=== PATIENT | female | born 1935 | race Caucasian/White ===

== ENCOUNTER 2020-10-05 12:40 | Outpatient (REF) | payer MEDICARE, SELFPAY ==
[2020-10-05 13:43] LABS: MANUAL DIFF FLAG NO
[2020-10-05 13:48] LABS: Basophils Percent Auto 0.4 % (0-2); Eosinophils Absolute Auto 0.2 X10*3/uL (0.0-0.4); Eosinophils Percent Auto 3.1 % (0-4); Hematocrit 40.1 % (37-47); Imm Gran Abs Auto 0.02 X10*3/uL (0.00-0.03); Imm Gran Pct Auto 0.3 % (0.0-0.4); Lymphocytes Absolute Auto 1.4 X10*3/uL (1.2-4.9); Lymphocytes Percent Auto 20.3 % (20-40); Mean Corpuscular HGB Conc 32.4 g/dl (31.0-35.0); Mean Corpuscular Hemoglobin 30.7 pg (27.0-33.0); Mean Corpuscular Volume 94.8 fL (80-98); Mean Platelet Volume 10.2 fL (9.4-12.3); Monocytes Absolute Auto 0.8 X10*3/uL (0.1-1.2); Monocytes Percent Auto 11.3 % (2-11); Neutrophils Absolute Auto 4.5 X10*3/uL (2.0-8.3); Neutrophils Percent Auto 64.6 % (45-73); Platelet Count 252 X10*3/uL (160-400); Red Blood Count 4.23 X10*6/uL (4.20-5.50); Red Cell Distribution Width 12.6 % (11.0-16.0)
[2020-10-05 14:11] LABS: Alanine Aminotransferase 7 U/L (0-31); Albumin Level 4.3 g/dL (3.5-5.0); Alkaline Phosphatase 54 U/L (39-117); Anion Gap 16 (12-20); Aspartate Amino Transferase 15 U/L (5-31); Bilirubin Total 0.9 mg/dL (0.0-1.0); Blood Urea Nitrogen 17 mg/dL (9-16); C Reactive Protein 0.06 mg/dL (< or = 0.50); Calcium 9.5 mg/dL (8.4-10.2); Carbon Dioxide 26 mmol/L (22-29); Chloride 102 mmol/L (96-108); Estimated Glomerular Filt Rate 55; Glucose Random 94 mg/dL (60-115); Potassium 4.3 mmol/L (3.3-5.1); Sodium 140 mmol/L (135-145)
[2020-10-05 14:34] LABS: Free T4 (Free Thyroxine) 1.05 ng/dL (0.71-1.85); Thyroid Stimulating Hormone 0.84 uIU/mL (0.32-4.0)
== END 2020-10-05 12:41 | disposition home or self-care (01) ==
LOC: HO.10HDL 12:40
PROVIDERS: Visit Provider Internal Medicine
DX: R07.89 Other chest pain (principal); I10 Essential (primary) hypertension; K21.9 Gastro-esophageal reflux disease without esophagitis; I73.9 Peripheral vascular disease, unspecified
CPT/HCPCS: 36415; 80053; 82306; 84439; 84443; 85025; 86140

== ENCOUNTER 2020-10-30 08:46 | Emergency (ER) | payer MEDICARE, SELFPAY ==
--- NOTE | ~2020-10-30 | CT_ITS ---
EXAMINATION: CT BRAIN, CT FACIAL BONES AND CT CERVICAL SPINE WITHOUT CONTRAST. CLINICAL INFORMATION: Fall. COMPARISON: None TECHNIQUE: 5 mm thin axial and reformatted 2 mm thin sagittal and coronal images of brain were obtained. Axial 3 mm thin and reformatted 1.5 mm thin sagittal and coronal images of facial bones were obtained. Lastly axial 3 mm thin and reformatted 2 mm thin sagittal and coronal images of cervical spine were obtained. DLP 1316 FINDINGS: Brain: There is no acute intra-axial, extra-axial bleed, masses or midline shift. There is no acute infarction in evolution. The rodríguez to white matter differentiation is maintained normal Both lateral ventricles are symmetrical in size and configuration with mild enlargement. Bone windows reveal no calvarial abnormality. There is no scalp soft tissue abnormality. Bilateral paranasal sinuses and mastoid air cells are well-aerated. Facial bones: The paranasal sinuses are well-aerated with mild fecal periosteal thickening right maxillary sinus. The bony sinus yoder, lamina papyracea and the cribriform plates are normal. The bony orbits are intact and normal. There is mild deviation nasal septum to the right with symmetrical turbinates. The nasal cavity and nasopharyngeal airway is widely patent. Cervical spine: There is normal cervical lordosis. The vertebral heights are normal. There is grade 1 anterolisthesis C3 over C4 and C4-C5 and C5 over C6. There is loss of disc height at C4-C5, C5-C6 and C6-C7 disc level. No visible acute fracture or lytic process seen. The craniovertebral junction and the C1-C2 alignment is normal. The prevertebral, paravertebral and parapharyngeal soft tissues are normal. No visible acute fracture, dislocation or subluxation seen. CT/CT cervical spine wo con IMPRESSION: No acute intracranial process seen. Age-related cerebral volume loss. There is no maxillofacial, nasal or mandibular fracture. There is grade 1 anterolisthesis C3 over C4, C4-C5 and C5 over C6 with degenerative disc changes C4-C5 through C6 facet 7 disc levels.
[2020-10-30 08:51] VITALS: BP 186/96; PULSE 85; RESP 16; TEMP 36.4; O2SAT 97; BMI 23.3
--- NOTE | 2020-10-30 08:53 | ED_ITS ---
HPI - Fall General Chief Complaint: Fall Stated Complaint: Fall Time Seen by Provider: 10/30/20 08:51 Source: patient and EMS Mode of arrival: EMS Limitations: no limitations History of Present Illness HPI Narrative: 85 yo female with HTN walking across the street tripped on curb and fell hitting head no AC therapy, no LOC, injury to nose MD complaint: fall Onset (ago): minute(s) Fall from: standing Fall witnessed: yes, by bystander Place fall occurred: street Loss of consciousness: none Prolonged down time: no Symptoms prior to fall: none Context: tripped/slipped Location of injury: face Severity: mild Quality: dull Associated symptoms (after fall): denies Related Data Allergies Allergy/AdvReac Type Severity Reaction Status Date / Time No Known Allergies Allergy Mild N/A Unverified 03/31/20 14:43 Review of Systems Review of Systems: Constitutional : No Fever, No Chills ENT/Mouth : No Ear Pain, No Hoarseness, No sore throat Eyes: No Eye Pain, No Swelling, No Redness, No Foreign Body, pos nose pain Cardiovascular : No Chest Pain, No SOB Respiratory : No Cough, No Dyspnea Gastrointestinal : No Nausea, No Vomiting, No Diarrhea, No abdominal Pain Genitourinary : No Dysuria, No Hematuria Musculoskeletal : no joint pain, No Myalgias, No Joint Swelling Skin : No Skin lacerations, No rash, pos abrasions Neuro : No Weakness, No Numbness, No Loss of Consciousness, No Dizziness, No Headache Psych : No Anxiety/Panic, No Depression Heme/Lymph: no easy bruising, no Lymphadenopathy Endocrine : No Polyuria, No Polydipsia All other systems reviewed and are negative [facility] Past Medical History Attestation statement: The following information was validated with the patient. Medical History HTN (hypertension) Social History Social History (Updated 10/30/20 @ 08:53 by Luci Bryant DO) Alcohol intake: never Smoking Status: Never smoker Use of substances other than those prescribed or required for medical reasons: No Advance Directives: Yes Advance Directives Information Provided: No Advance Directives on File: No Physical Exam Vital Signs: Vital Signs: Last Vital Signs Temp 97.6 F 10/30/20 08:51 Pulse 85 10/30/20 08:51 Resp 16 10/30/20 08:51 BP 186/96 H 10/30/20 08:51 Pulse Ox 97 10/30/20 08:51 Body Mass Index 23.3 Appearance: Alert. Oriented X3. No acute distress. Eyes: Pupils equal, round and reactive to light. ENT: Pharynx normal. dried blood from both nares, no nasal septal hematoma, abrasion on upper lip and bridge of nose, no cervantes sign Neck: Normal inspection. Neck supple. cervical collar in place CVS: Normal heart rate and rhythm. Pulses normal. Respiratory: No respiratory distress. Breath sounds normal. Abdomen: Soft and non-tender. Skin: Skin warm and dry. Normal skin color. Normal skin turgor. Extremities: No lower extremity edema. No calf ttp Neuro: Oriented X 3. No motor deficit. No sensory deficit. Course Course Course Narrative: negative workup GCS 15 stable for DC MDM - Fall MDM Narrative Medical decision making narrative: 85 yo female with HTN no AC therapy trip and fall with injury to face - at this time given age will need CT head/facial bones/cervical spine - dispo per results and findings. Discharge Plan Discharge Clinical Impression: Abrasion Head injury Qualifiers: Encounter type: initial encounter Qualified Code(s): S09.90XA - Unspecified injury of head, initial encounter Patient Disposition: Home, Self-Care Instructions: Head Injury (ED), Abrasion (ED) Additional Instructions: return to ED for any worsening symptoms or concerns Referrals: Rik Miller MD [Primary Care Provider] - 2 days (as needed)
--- NOTE | 2020-10-30 10:21 | PC.NURSE ---
awaiting ct, pt on bed george at this time. unable to void.
== END 2020-10-30 14:05 | disposition home or self-care (01) ==
PROVIDERS: Emergency Provider Emergency Medicine; PCP Internal Medicine
DX: S09.90XA Unspecified injury of head, initial encounter (principal); S00.91XA Abrasion of unspecified part of head, initial encounter; G44.309 Post-traumatic headache, unspecified, not intractable; M54.2 Cervicalgia; W01.0XXA Fall on same level from slipping, tripping and stumbling without subsequent striking against object, initial encounter; Y93.9 Activity, unspecified; Y92.480 Sidewalk as the place of occurrence of the external cause; Y99.9 Unspecified external cause status
CPT/HCPCS: 70450; 70486; 72125; 99284

== ENCOUNTER 2020-12-30 13:08 | Outpatient (REF) | payer MEDICARE, SELFPAY ==
--- NOTE | ~2020-12-30 | CT_ITS ---
EXAMINATION: CT CHEST WITHOUT CONTRAST CLINICAL INFORMATION: Large thyroid goiter. COMPARISON: Previous CTA of the chest June 2019 and chest x-ray June 2019. TECHNIQUE: Multidetector volumetric CT imaging of the chest was done. Axial MIP volume rendering provided. Sagittal and coronal reformatted images were obtained. This CT examination was performed using dose optimization techniques as appropriate, variously including the following: *Automated exposure control. *Adjustment of mA and/or kV according to patient size (this includes techniques or standardized protocols for targeted exams where dose is matched to indication/reason for exam; i.e. extremities or head). *Use of iterative reconstruction technique. DLP: 131 mGy-cm FINDINGS: EMU FARMER: There is a right superior mediastinal mass and deviation of the trachea to the left. LUNGS: Evaluation of the lungs is significantly limited due to artifact from respiratory motion. There is a 2 mm left upper lobe nodule, axial image 110 series 7. There are increased linear markings seen in the apicoposterior segment of the left upper lobe medially probably representing scarring or subsegmental atelectasis; for example, axial image 150/175 series 7. There is a 2 mm right upper lobe nodule, axial 24 series 7, 3 mm left upper lobe nodule, axial image 222 series 7, 3 mm left upper lobe nodules, axial image 252 and 253 series 7 and 2 mm left upper lobe nodule, axial image 308 and 322 series 7, likely related to bronchial soft tissue opacification. There is a 3 mm ground-glass attenuation right middle lobe nodule, axial image 306 series 7 that is stable. There is a 3 mm ground-glass attenuation right lower lobe nodule, axial image 312 series 7 that is new. There is a 3 mm ground-glass right lower lobe nodule, axial image 461 series 7 that is stable. There is linear scarring or subsegmental atelectasis at the lung bases. MEDIASTINUM: The right lobe of the thyroid gland is enlarged and heterogeneous in attenuation with likely multiple nodules. This deviates the trachea to the left and extends to the top of the manubrium. This appears slightly decreased in size compared to June 2019. There is a solitary left thyroid nodule measuring 0.5 x 1.2 cm. There are no enlarged hilar or mediastinal lymph nodes. The heart does not appear enlarged. There is coronary artery and aortic valve calcification. There is no pericardial effusion. The thoracic aorta is tortuous but normal in caliber. PLEURA: There is no pleural effusion. No pleural mass or thickening. AXILLA: No lymphadenopathy. UPPER ABDOMEN: The common bile duct appears dilated measuring 1.4 cm. This is similar to previous exam. The main pancreatic duct does not appear dilated. There is no intrahepatic biliary duct dilatation. The visualized gallbladder is unremarkable. OSSEOUS STRUCTURES: There are multiple compression fractures including a severe T12 vertebral body compression fracture. These do not appear acute and are unchanged from previous CTA of the chest June 2019. There is an old sternal fracture that is unchanged. CT/CT chest wo con IMPRESSION: Enlarged right lobe of the thyroid gland with multiple nodules probably representing a multinodular goiter. Extends into the superior mediastinum to the level of the manubrium and deviates the trachea to the left. This appears decreased in size from previous CTA of June 2019. Limited evaluation of the lungs due to respiratory motion. Small pulmonary nodules many of which appear related to bronchial soft tissue opacification.
== END 2020-12-30 13:09 | disposition home or self-care (01) ==
LOC: HO.CT 13:08
PROVIDERS: PCP Internal Medicine; Visit Provider Internal Medicine
DX: E04.9 Nontoxic goiter, unspecified (principal)
CPT/HCPCS: 71250

== ENCOUNTER → 2021-01-20 10:02 | Outpatient (BNVA) | payer MEDICARE, SELFPAY | PROVIDERS: PCP Internal Medicine; Visit Provider Surgery | DX: R91.8 Other nonspecific abnormal finding of lung field (principal); J39.8 Other specified diseases of upper respiratory tract; E04.2 Nontoxic multinodular goiter; Z79.899 Other long term (current) drug therapy | CPT/HCPCS: 99212 ==

== ENCOUNTER 2022-02-15 11:04 | Outpatient (REF) | payer MEDICARE, SELFPAY ==
[2022-02-15 11:25] LABS: MANUAL DIFF FLAG NO
[2022-02-15 11:47] LABS: Basophils Percent Auto 0.5 % (0-2); Eosinophils Absolute Auto 0.3 X10*3/uL (0.0-0.4); Eosinophils Percent Auto 5.5 % (0-4); Hematocrit 39.3 % (37.0-47.0); Imm Gran Abs Auto 0.03 X10*3/uL (0.00-0.03); Imm Gran Pct Auto 0.5 % (0.0-0.4); Lymphocytes Absolute Auto 1.5 X10*3/uL (1.2-4.9); Lymphocytes Percent Auto 24.8 % (20-40); Mean Corpuscular HGB Conc 33.1 g/dl (31.0-35.0); Mean Corpuscular Hemoglobin 31.3 pg (27.0-33.0); Mean Corpuscular Volume 94.5 fL (80.0-98.0); Mean Platelet Volume 10.3 fL (9.4-12.3); Monocytes Absolute Auto 0.7 X10*3/uL (0.1-1.2); Monocytes Percent Auto 10.7 % (2-11); Neutrophils Absolute Auto 3.6 x10*3/uL (2.0-8.3); Platelet Count 248 X10*3/uL (160-400); Red Blood Count 4.16 X10*6/uL (4.20-5.50); Red Cell Distribution Width 12.9 % (11.0-16.0); White Blood Count 6.2 X10*3/uL (4.8-10.8)
[2022-02-15 12:17] LABS: Alanine Aminotransferase 9 U/L (0-31); Albumin Level 4.3 g/dL (3.5-5.0); Alkaline Phosphatase 51 U/L (39-117); Anion Gap 14 (12-20); Aspartate Amino Transferase 15 U/L (5-31); Bilirubin Total 0.5 mg/dL (0.0-1.0); Blood Urea Nitrogen 13 mg/dL (9-16); Calcium 9.4 mg/dL (8.4-10.2); Carbon Dioxide 27 mmol/L (22-29); Chloride 104 mmol/L (96-108); Cholesterol 220 mg/dL; Estimated Glomerular Filt Rate 50; Glucose Random 102 mg/dL (60-115); Potassium 4.7 mmol/L (3.3-5.1); Sodium 140 mmol/L (135-145); Total Protein 7.1 g/dL (6.5-8.0)
[2022-02-15 12:28] LABS: Free T4 (Free Thyroxine) 1.15 ng/dL (0.71-1.85); Thyroid Stimulating Hormone 1.16 uIU/mL (0.32-4.0); Vitamin D 25-OH Total 27.6 ng/mL (>30)
== END 2022-02-15 11:05 | disposition home or self-care (01) ==
LOC: HO.LAB 11:04
PROVIDERS: PCP Internal Medicine; Visit Provider Internal Medicine
DX: I12.9 Hypertensive chronic kidney disease with stage 1 through stage 4 chronic kidney disease, or unspecified chronic kidney disease (principal); N18.9 Chronic kidney disease, unspecified; E55.9 Vitamin D deficiency, unspecified; K21.9 Gastro-esophageal reflux disease without esophagitis; E04.9 Nontoxic goiter, unspecified
CPT/HCPCS: 36415; 80053; 82306; 82465; 84439; 84443; 85025

== ENCOUNTER 2022-12-17 09:28 | Outpatient (REF) | payer MEDICARE, SELFPAY ==
[2022-12-17 10:58] LABS: MANUAL DIFF FLAG NO
[2022-12-17 11:28] LABS: Basophils Percent Auto 0.5 % (0-2); Eosinophils Absolute Auto 0.4 X10*3/uL (0.0-0.4); Eosinophils Percent Auto 6.8 % (0-4); Hematocrit 37.5 % (37.0-47.0); Hemoglobin 12.4 g/dl (12.0-16.0); Imm Gran Abs Auto 0.01 X10*3/uL (0.00-0.03); Imm Gran Pct Auto 0.2 % (0.0-0.4); Lymphocytes Absolute Auto 1.4 X10*3/uL (1.2-4.9); Lymphocytes Percent Auto 24.7 % (20-40); Mean Corpuscular HGB Conc 33.1 g/dl (31.0-35.0); Mean Corpuscular Hemoglobin 31.2 pg (27.0-33.0); Mean Corpuscular Volume 94.2 fL (80.0-98.0); Mean Platelet Volume 10.5 fL (9.4-12.3); Monocytes Absolute Auto 0.7 X10*3/uL (0.1-1.2); Monocytes Percent Auto 11.5 % (2-11); Neutrophils Absolute Auto 3.2 x10*3/uL (2.0-8.3); Neutrophils Percent Auto 56.3 % (45-73); Platelet Count 227 X10*3/uL (160-400); Red Blood Count 3.98 X10*6/uL (4.20-5.50); Red Cell Distribution Width 12.8 % (11.0-16.0); White Blood Count 5.7 X10*3/uL (4.8-10.8)
[2022-12-17 11:56] LABS: Alanine Aminotransferase 11 U/L (0-31); Alkaline Phosphatase 56 U/L (39-117); Anion Gap 12 (12-20); Aspartate Amino Transferase 17 U/L (5-31); Bilirubin Total 0.6 mg/dL (0.0-1.0); Blood Urea Nitrogen 14 mg/dL (9-16); C Reactive Protein < 0.10 mg/dL (< or = 0.50); Calcium 8.8 mg/dL (8.4-10.2); Carbon Dioxide 27 mmol/L (22-29); Chloride 106 mmol/L (96-108); Cholesterol 186 mg/dL; Estimated Glomerular Filt Rate > 60; Glucose Random 85 mg/dL (60-115); Potassium 4.2 mmol/L (3.3-5.1); Sodium 141 mmol/L (135-145); Total Protein 6.7 g/dL (6.5-8.0)
[2022-12-17 12:22] LABS: Vitamin D 25-OH Total 41.4 ng/mL (>30)
== END 2022-12-17 09:29 | disposition home or self-care (01) ==
LOC: HO.10HDL 09:28
PROVIDERS: Visit Provider Internal Medicine
DX: E55.9 Vitamin D deficiency, unspecified (principal); I12.9 Hypertensive chronic kidney disease with stage 1 through stage 4 chronic kidney disease, or unspecified chronic kidney disease; N18.9 Chronic kidney disease, unspecified; E04.9 Nontoxic goiter, unspecified
CPT/HCPCS: 36415; 80053; 82306; 82465; 84439; 84443; 85025; 86140

== ENCOUNTER 2023-04-10 10:03 | Outpatient (REF) | payer MEDICARE, SELFPAY ==
--- NOTE | ~2023-04-10 | XR_ITS ---
EXAMINATION: XR HIP, RIGHT CLINICAL INFORMATION: Pain in right hip COMPARISON: None available. TECHNIQUE: Two views of the right hip. FINDINGS: No fracture. Alignment is anatomic. Hip joint space is maintained. Soft tissues are unremarkable. XR/XR hip RT min 2V IMPRESSION: Normal right hip.
== END 2023-04-10 10:04 | disposition home or self-care (01) ==
LOC: HO.XRAY 10:03
PROVIDERS: PCP Internal Medicine; Visit Provider Internal Medicine
DX: M25.551 Pain in right hip (principal)
CPT/HCPCS: 73502

== ENCOUNTER 2023-08-16 13:53 | Emergency (ER) | payer MEDICARE, SELFPAY ==
--- NOTE | ~2023-08-16 | CT_ITS ---
EXAMINATION: CT ABDOMEN AND PELVIS WITH CONTRAST CLINICAL INFORMATION: Upper abdominal pain COMPARISON: None available. TECHNIQUE: Multidetector volumetric images were obtained from the superior aspect of the liver through the pubic symphysis following administration 85 mL of Omnipaque 350 intravenous contrast. Sagittal and coronal reformatted images were obtained on the technologist's workstation. Oral contrast: Yes This CT examination was performed using dose optimization techniques as appropriate, variously including the following: *Automated exposure control *Adjustment of mA and/or kV according to patient size (this includes techniques or standardized protocols for targeted exams where dose is matched to indication/reason for exam; i.e. extremities or head) *Use of iterative reconstruction technique DLP: 391 mGy-cm FINDINGS: LUNG BASES: The visualized lung bases are unremarkable. LIVER, GALLBLADDER, AND BILIARY TREE: There is a 1 x 2 cm low-attenuation lesion in the caudate lobe probably representing a cyst. No other focal liver lesion. There is intra and extrahepatic biliary duct dilatation. Common bile duct measures up to 1.5 cm and is dilated down to the head of the pancreas. The gallbladder is enlarged. There is gallbladder wall edema or pericholecystic fluid. No gallstones are seen by CT. PANCREAS: The main pancreatic duct is dilated measuring up to 6 mm in the pancreas. No definite pancreatic mass is seen. SPLEEN: Unremarkable. ADRENAL GLANDS: Unremarkable. KIDNEYS AND URETERS: The kidneys are normal in size, shape, and attenuation. No hydronephrosis, hydroureter, or calculi seen. No perinephric stranding. BLADDER: Unremarkable. GASTROINTESTINAL TRACT: Mild diverticulosis colon. Long segment mild wall thickening of the left colon and splenic rupture questionable for colitis. The small and large bowel are otherwise unremarkable. The appendix is unremarkable. Injection wall thickening of the proximal stomach versus ABDOMINAL WALL: No significant hernia is appreciated. LYMPH NODES: There are multiple small peripancreatic, periportal and upper abdominal retroperitoneal lymph nodes. No enlarged lymph nodes. VASCULAR: Atherosclerotic disease. No aneurysm. PELVIC VISCERA: The uterus appears to have been removed. No pelvic mass. OSSEOUS STRUCTURES: Severe old-appearing T12 vertebral body compression fracture. Degenerative changes of the spine. Mild anterior subluxation of L4 with respect L5 probably secondary to facet arthritis. CT/CT abdomen pelvis w IV con IMPRESSION: Intra and extrahepatic biliary duct dilatation and dilated gallbladder. Dilated main pancreatic duct. Findings are concerning for ampullary or pancreatic head lesion. Follow-up MR of the pancreas with MRCP recommended. Small peripancreatic lymph nodes. Diverticulosis of the colon. Long segment wall thickening of the splenic flexure and left colon questionable for mild colitis. Question mild wall thickening of the proximal stomach versus underdistention. Fleischner guidelines were followed.
--- NOTE | ~2023-08-16 | XR_ITS ---
EXAMINATION: XR CHEST CLINICAL INFORMATION: Chest pain COMPARISON: Previous CT December 2020 and chest x-ray June 2019 TECHNIQUE: Frontal view of the chest was obtained. FINDINGS: The cardiac and mediastinal contours are stable. The lungs are clear. No pleural or pneumothorax. Degenerative changes of the spine. XR/XR chest 1V IMPRESSION: No evidence for acute disease in the chest.
--- NOTE | 2023-08-16 14:07 | ECG_ITS ---
Test Reason : cp/abd pain Blood Pressure : / mmHG Vent. Rate : 122 BPM Atrial Rate : 122 BPM P-R Int : 172 ms QRS Dur : 084 ms QT Int : 306 ms P-R-T Axes : 062 027 050 degrees QTc Int : 436 ms Sinus tachycardia with Premature atrial complexes Otherwise normal ECG When compared with ECG of 13-JUL-2019 10:40, Premature atrial complexes are now Present Referred By: Elen Eagle Electronically Signed By:JUNI BERGMAN MD
--- NOTE | 2023-08-16 14:08 | ED_ITS ---
HPI - General Adult General Chief complaint: Abdominal Pain Stated complaint: ABD PAIN Time Seen by Provider: 08/16/23 13:56 Source: patient and EMS Mode of arrival: EMS Limitations: no limitations History of Present Illness HPI narrative: Patient comes to the emergency room via ambulance from home. Approximately 6 hours ago, patient started having bilateral upper abdominal pain/chest pain bilaterally. Patient states she has not sure if it is the chest or abdomen. Patient wanted to make sure she has not having a heart attack. Patient denies any cardiac history. Patient states she woke up around 6 in the morning, ate breakfast at 06:30, she was doing well, at 08:00, the pain started. Now it has been over 6 hours with ongoing symptoms. Patient denies nausea vomiting or diarrhea, no shortness of breath. Related Data Home Medications Medication Instructions Recorded Confirmed labetalol 100 mg tablet 100 mg PO BID 01/20/21 01/20/21 lisinopril 10 mg tablet 10 mg PO BID 01/20/21 01/20/21 meclizine 12.5 mg tablet 12.5 mg PO DAILY 01/20/21 01/20/21 Previous Rx's Medication Instructions Recorded tramadol 50 mg tablet 50 mg PO BID PRN pain #6 tabs 08/16/23 Allergies Allergy/AdvReac Type Severity Reaction Status Date / Time Seasonal Allergies Allergy Itchy Eyes Verified 08/16/23 14:26 Review of Systems 2 Review of Systems: Constitutional : No Weight loss, No Fever, No Chills, No Night Sweats, No Fatigue, No Malaise ENT/Mouth : No Hearing loss, No Ear Pain, No Nasal Congestion, No Sinus Pain, No Hoarseness, No sore throat, No Rhinorrhea, No Swallowing Difficulty Eyes: No Eye Pain, No Swelling, No Redness, No Foreign Body, No Discharge, No Vision Changes Cardiovascular : Complaining of bilateral chest pain/upper abdominal pain No SOB, No Dyspnea on Exertion, No Orthopnea, No Edema, No Palpitations Respiratory : No Cough, No Sputum, No Wheezing, No Smoke Exposure, No Dyspnea Gastrointestinal : No Nausea, No Vomiting, No Diarrhea, No Constipation, complaining of bilateral upper abdominal pain, No Hematochezia, No Melena Genitourinary : no irregular bleeding, No Dysuria, No Urinary Frequency, No Hematuria, No Urinary Incontinence, No Urgency, No Flank Pain, No Urinary Flow Changes, No Hesitancy Musculoskeletal : No joint pain, No Myalgias, No Joint Swelling Skin : No Skin Lesions, No rash Neuro : No Weakness, No Numbness, No Paresthesias, No Loss of Consciousness, No Dizziness, No Headache Psych : No Anxiety/Panic, No Depression, No SI/HI/AH/VH, No Social Issues, Heme/Lymph: No Bruising, No Bleeding,No Lymphadenopathy Endocrine : No Polyuria, No Polydipsia, No Temperature Intolerance FOR[facility], [facility] Past Medical History Medical History (Updated 08/16/23 @ 17:22 by Elen Eagle MD) Fracture of sternum, closed (~01/2015) Wedge compression fracture of T12 vertebra Common bile duct dilation Pulmonary nodules Multinodular goiter Tracheal deviation Osteopenia Hyperlipidemia GERD (gastroesophageal reflux disease) HTN (hypertension) Surgical History (Updated 08/16/23 @ 14:23 by Elen Eagle MD) Hx of appendectomy History of colonoscopy History of hernia repair History of hysterectomy Family History Family History Brother Rectal cancer Father Myocardial infarction Mother Breast cancer Social History Social History Alcohol intake: never Advance Directives: No Advance Directives Information Provided: Yes Physical Exam ED Vital Signs: Vital Signs - 24 hr 08/16/23 14:12 Temperature 97.6 F Pulse Rate 101 H Respiratory Rate 14 Blood Pressure 171/87 H Pulse Oximetry 97 Oxygen Delivery Method Room Air BMI result Body Mass Index 22.4 Const Other: Appearance: Alert. Oriented X3. No acute distress. Eyes: Pupils equal, round and reactive to light. ENT: Pharynx normal. Neck: Normal inspection. Neck supple. No lymph nodes noted. No crepitus CVS: Normal heart rate and rhythm. Pulses normal. Normal S1 and S2 Respiratory: No respiratory distress. Breath sounds normal. No Wheezing. No rales Abdomen: Soft , mild discomfort to palpation in bilateral upper quadrants, No rigidity. No distention. Skin: Skin warm and dry. Normal skin color. Normal skin turgor. Extremities: No lower extremity edema. No Lacerations. No Rash Neuro: Oriented X 3. No motor deficit. No sensory deficit. Moving all extremities. No slurred speech. CN 2 through 12 grossly intact Psych: calm, cooperative, normal affect Course Course Course Narrative: -patient well-appearing -all of patient's labs and imaging pending Medications Administered Discontinued Medications Generic Name Dose Route Start Last Admin Trade Name Georgiana PRN Reason Stop Dose Admin Iohexol 100 ml 08/16/23 15:49 08/16/23 15:49 Iohexol 350 Mg/Ml 100 Ml Infus..Btl IV 08/16/23 15:50 85 ml ONCE ONE Administration Medical Decision Making Medical Decision Making [facility] Narrative: -my interpretation of labs: Normal hematology, chemistry within normal limits, LFTs elevated, lipase normal. -my interpretation of CT scan of the abdomen, extended gallbladder with wall thickening. Urinalysis pending -IV fluids and IV pain medications were offered, patient declined, says she feels better. -I discussed the CT scan findings with Dr. Ramirez from Gastroenterology. Patient's CT scan is concerning for an ampullary or pancreatic head lesion and patient will likely need an MR with MRCP. Also, patient will need an endoscopic ultrasound and may need a biopsy/pathology report -at this time, patient states that she feels well, has no abdominal pain, no nausea or vomiting. At this time, patient does not need to be admitted since she is doing well. -I discussed the above-mentioned with the patient, daughter . Admission was offered. Patient states that she would like to go home. Discussed with the patient that if anything changes between now and her appointment with her PCP or Gastroenterology in [facility], she needs to come back to the emergency room. Patient agrees with plan. -I discussed with the patient and her family the significance of the CT scan, including possible malignancy. Discussed with them to inform their primary care physicians as soon as possible. Patient's daughter states that they will call Dr. Miller 1st thing on Saturday. Differential Diagnosis Differential Diagnoses: The differential diagnosis associated with the presentation includes (Cholecystitis, pancreatitis, small-bowel obstruction, pancreatic mass) Admission/Observation Consideration of admission/observation: Escalation of care including admission/observation considered (Admission was offered) Consult Healthcare Provider Management of the patient was discussed with: Product Transfer Pumper Lab Data [facility] Lab Attestation statement: I reviewed the patient's lab results. 08/16/23 14:29 08/16/23 14:29 Labs: Lab Results 08/16/23 Range/Units 14:29 WBC 9.1 (4.8-10.8) X10*3/uL RBC 4.53 (4.20-5.50) X10*6/uL Hgb 14.3 (12.0-16.0) g/dl Hct 42.6 (37.0-47.0) % MCV 94.0 (80.0-98.0) fL MCH 31.6 (27.0-33.0) pg MCHC 33.6 (31.0-35.0) g/dl RDW 12.4 (11.0-16.0) % Plt Count 232 (160-400) X10*3/uL MPV 10.1 (9.4-12.3) fL Immature Gran % (Auto) 0.3 (0.0-0.4) % Neut % (Auto) 90.5 H (45-73) % Lymph % (Auto) 4.5 L (20-40) % [place] % (Auto) 4.1 (2-11) % Eos % (Auto) 0.5 (0-4) % Baso % (Auto) 0.1 (0-2) % Lymph # (Auto) 0.4 L (1.2-4.9) X10*3/uL [place] # (Auto) 0.4 (0.1-1.2) X10*3/uL Eos # (Auto) 0.1 (0.0-0.4) X10*3/uL Baso # (Auto) 0.0 (0.0-0.2) X10*3/uL Abs Immat Gran (auto) 0.03 (0.00-0.03) X10*3/uL Absolute Neuts (auto) 8.2 (2.0-8.3) x10*3/uL Absolute Nucleated RBC 0.000 (0.0-0.012) X10*3/uL Nucleated RBC % (auto) 0.0 (0.0-0.2) /100WBC Smear Tech's Comments VERIFIED PT 12.3 (11.1-13.3) SEC INR 1.0 (0.9-1.1) Sodium 137 (135-145) mmol/L Potassium 3.8 (3.3-5.1) mmol/L Chloride 103 (96-108) mmol/L Carbon Dioxide 25 (22-29) mmol/L Anion Gap 13 (12-20) BUN 19 H (9-16) mg/dL Creatinine 0.85 (0.5-1.4) mg/dL Estim Creat Clear Calc 43.6 Estimated GFR > 60 Random Glucose 117 H (60-115) mg/dL Calcium 9.8 D (8.4-10.2) mg/dL Magnesium 1.7 (1.6-2.6) mg/dL Total Bilirubin 1.9 H (0.0-1.0) mg/dL Direct Bilirubin 1.4 H (0.0-0.5) mg/dL AST 111 H (5-31) U/L ALT 51 H (0-31) U/L Alkaline Phosphatase 69 (39-117) U/L Troponin I High Sens < 2.7 (<3.5-17.0) ng/L B-Natriuretic Peptide 86 (<100) pg/mL Total Protein 7.5 (6.5-8.0) g/dL Albumin 4.2 (3.5-5.0) g/dL Lipase 14 (8-78) U/L Independent Interpretation I performed an independent interpretation of an: CT Scan Radiology Impression Discussion of test interpretation with radiology: I have reviewed the radiologist's reading. Radiologist Impression: FINDINGS: LUNG BASES: The visualized lung bases are unremarkable. LIVER, GALLBLADDER, AND BILIARY TREE: There is a 1 x 2 cm low-attenuation lesion in the caudate lobe probably representing a cyst. No other focal liver lesion. There is intra and extrahepatic biliary duct dilatation. Common bile duct measures up to 1.5 cm and is dilated down to the head of the pancreas. The gallbladder is enlarged. There is gallbladder wall edema or pericholecystic fluid. No gallstones are seen by CT. PANCREAS: The main pancreatic duct is dilated measuring up to 6 mm in the pancreas. No definite pancreatic mass is seen. SPLEEN: Unremarkable. ADRENAL GLANDS: Unremarkable. KIDNEYS AND URETERS: The kidneys are normal in size, shape, and attenuation. No hydronephrosis, hydroureter, or calculi seen. No perinephric stranding. BLADDER: Unremarkable. GASTROINTESTINAL TRACT: Mild diverticulosis colon. Long segment mild wall thickening of the left colon and splenic rupture questionable for colitis. The small and large bowel are otherwise unremarkable. The appendix is unremarkable. Injection wall thickening of the proximal stomach versus ABDOMINAL WALL: No significant hernia is appreciated. LYMPH NODES: There are multiple small peripancreatic, periportal and upper abdominal retroperitoneal lymph nodes. No enlarged lymph nodes. VASCULAR: Atherosclerotic disease. No aneurysm. PELVIC VISCERA: The uterus appears to have been removed. No pelvic mass. OSSEOUS STRUCTURES: Severe old-appearing T12 vertebral body compression fracture. Degenerative changes of the spine. Mild anterior subluxation of L4 with respect L5 probably secondary to facet arthritis. CT/CT abdomen pelvis w IV con IMPRESSION: Intra and extrahepatic biliary duct dilatation and dilated gallbladder. Dilated main pancreatic duct. Findings are concerning for ampullary or pancreatic head lesion. Follow-up MR of the pancreas with MRCP recommended. Small peripancreatic lymph nodes. Diverticulosis of the colon. Long segment wall thickening of the splenic flexure and left colon questionable for mild colitis. Question mild wall thickening of the proximal stomach versus underdistention. Fleischner guidelines were followed. Critical Care Time Critical Care Time Critical Care Time: Yes Total Critical Care Time: 60 Attestation: I have personally provided critical care time. Time includes review of lab data, radiology results, discussion with consultants, and monitoring for potential decompensation. Intervention performed as documented. Discharge Plan Discharge Clinical Impression: Dilation of pancreatic duct, Abdominal pain Patient Disposition: Home, Self-Care Instructions: Abdominal Pain (ED) Additional Instructions: Please follow-up with your primary care physician tomorrow. If you have any worsening or new symptoms, please return to the emergency room or call 911 Prescriptions: New tramadol 50 mg tablet 50 mg PO BID PRN (Reason: pain) Qty: 6 0RF No Action lisinopril 10 mg tablet 10 mg PO BID labetalol 100 mg tablet 100 mg PO BID meclizine 12.5 mg tablet 12.5 mg PO DAILY
[2023-08-16 14:12] VITALS: BP 166/84; BP 171/87; PULSE 101; PULSE 96; RESP 14; TEMP 36.4; O2SAT 96; O2SAT 97; BMI 22.4
[2023-08-16 14:41] LABS: Basophils Percent Auto 0.1 % (0-2); Eosinophils Absolute Auto 0.1 X10*3/uL (0.0-0.4); Eosinophils Percent Auto 0.5 % (0-4); Hematocrit 42.6 % (37.0-47.0); Hemoglobin 14.3 g/dl (12.0-16.0); Imm Gran Abs Auto 0.03 X10*3/uL (0.00-0.03); Imm Gran Pct Auto 0.3 % (0.0-0.4); Lymphocytes Absolute Auto 0.4 X10*3/uL (1.2-4.9); Lymphocytes Percent Auto 4.5 % (20-40); MANUAL DIFF FLAG SCAN; Mean Corpuscular HGB Conc 33.6 g/dl (31.0-35.0); Mean Corpuscular Hemoglobin 31.6 pg (27.0-33.0); Mean Platelet Volume 10.1 fL (9.4-12.3); Monocytes Absolute Auto 0.4 X10*3/uL (0.1-1.2); Monocytes Percent Auto 4.1 % (2-11); Neutrophils Absolute Auto 8.2 x10*3/uL (2.0-8.3); Neutrophils Percent Auto 90.5 % (45-73); Platelet Count 232 X10*3/uL (160-400); Red Blood Count 4.53 X10*6/uL (4.20-5.50); Red Cell Distribution Width 12.4 % (11.0-16.0); SCAN SMEAR FLAG 1; White Blood Count 9.1 X10*3/uL (4.8-10.8)
[2023-08-16 14:46] LABS: Prothrombin Time 12.3 SEC (11.1-13.3)
[2023-08-16 14:57] LABS: Alanine Aminotransferase 51 U/L (0-31); Albumin Level 4.2 g/dL (3.5-5.0); Alkaline Phosphatase 69 U/L (39-117); Anion Gap 13 (12-20); Aspartate Amino Transferase 111 U/L (5-31); Bilirubin Direct 1.4 mg/dL (0.0-0.5); Bilirubin Total 1.9 mg/dL (0.0-1.0); Blood Urea Nitrogen 19 mg/dL (9-16); Calcium 9.8 mg/dL (8.4-10.2); Carbon Dioxide 25 mmol/L (22-29); Chloride 103 mmol/L (96-108); Creatinine Clr Calc Pharmacy 43.6; Estimated Glomerular Filt Rate > 60; Glucose Random 117 mg/dL (60-115); Lipase 14 U/L (8-78); Magnesium 1.7 mg/dL (1.6-2.6); Potassium 3.8 mmol/L (3.3-5.1); Sodium 137 mmol/L (135-145); Total Protein 7.5 g/dL (6.5-8.0)
[2023-08-16 15:02] LABS: B Type Natriuretic Peptide 86 pg/mL (<100)
[2023-08-16 15:13] LABS: Troponin-I High Sensitivity < 2.7 ng/L (<3.5-17.0)
[2023-08-16 15:23] LABS: SLIDE REVIEW VERIFIED
[2023-08-16] MEDS: iohexoL 350 MG/ML 100 ML INFUS..BTL IV (15:49)
[2023-08-16 19:22] LABS: Appearance Urine Clear; Color Urine Yellow; Glucose Urine UA Negative (Negative); Leukocyte Esterase Urine Large (3+) (Negative); Nitrite Urine Negative (Negative); Specific Gravity - Urine <= 1.005 (1.005-1.025); UMIC TRIGGER UACC YES; Urine Blood Trace (Negative); Urine Ketones Negative (Negative); Urine Protein Negative (Neg-Trace)
[2023-08-16 19:42] LABS: Bacteria Urine None Seen (None Seen); Hyaline Casts Urine 0-2 /LPF (0-2); RBC Urine 0-2 /HPF (0-2); Squamous Epithelial Cell Urine 0-2 /HPF (0-2); UACC Culture Trigger YES; WBC Urine 0-5 /HPF (0-5)
== END 2023-08-16 17:52 | disposition home or self-care (01) ==
PROVIDERS: Emergency Provider Emergency Medicine; PCP Internal Medicine
DX: R10.10 Upper abdominal pain, unspecified (principal); R07.89 Other chest pain; R06.02 Shortness of breath; K86.89 Other specified diseases of pancreas; Z79.899 Other long term (current) drug therapy
CPT/HCPCS: 36415; 71045; 74177; 80048; 80076; 81001; 81003; 83690; 83735; 83880; 84484; 85025; 85610; 87086; 93005; 99283; 99284; Q9967

== ENCOUNTER → 2023-08-16 14:07 | Outpatient (BNV) | payer MEDICARE, SELFPAY | PROVIDERS: Emergency Provider Emergency Medicine; PCP Internal Medicine; Visit Provider Internal Medicine Cardiovascular Disease | DX: I49.1 Atrial premature depolarization (principal) | CPT/HCPCS: 93010 ==

== ENCOUNTER 2023-08-22 10:01 | Inpatient (IN) | payer MEDICARE, SELFPAY ==
[2023-08-22] VITALS (10 sets, daily range): BP systolic 115–176; BP diastolic 58–104; PULSE 99–120; RESP 16–20; TEMP 36.2–37.2; O2SAT 95–99; BMI 22.9
--- NOTE | ~2023-08-22 | CT_ITS ---
EXAMINATION: CT ABDOMEN AND PELVIS WITH CONTRAST CLINICAL INFORMATION: Hematuria. COMPARISON: 08/16/2023 TECHNIQUE: Multidetector volumetric images were obtained from the superior aspect of the liver through the pubic symphysis following administration 85 mL of Omnipaque 350 intravenous contrast. Sagittal and coronal reformatted images were obtained on the technologist's workstation. Oral contrast: No This CT examination was performed using dose optimization techniques as appropriate, variously including the following: *Automated exposure control *Adjustment of mA and/or kV according to patient size (this includes techniques or standardized protocols for targeted exams where dose is matched to indication/reason for exam; i.e. extremities or head) *Use of iterative reconstruction technique DLP: 336 mGy-cm FINDINGS: LUNG BASES: The visualized lung bases are unremarkable. LIVER, GALLBLADDER, AND BILIARY TREE: The liver is normal in size and contour. No suspicious hepatic lesion. 1.0 cm cyst in the caudate lobe. Stable intrahepatic and extrahepatic biliary ductal dilatation. The common duct measures up to 1.5 cm on the konstantin hepatis and is unchanged. Distended gallbladder. Mild gallbladder wall thickening. No pericholecystic inflammatory changes. PANCREAS: The proximal main pancreatic duct measures up to 5 mm. SPLEEN: Not enlarged. ADRENAL GLANDS: No adrenal mass. KIDNEYS AND URETERS: The kidneys are symmetric in size and enhancement. No hydronephrosis. No perinephric stranding. BLADDER: Irregular wall thickening of the urinary bladder with submucosal enhancement. There are foci of gas within the nondependent portion. There is soft tissue density surrounding the Pham catheter within the bladder lumen. There is perivesicular stranding. GASTROINTESTINAL TRACT: Gastric wall thickening despite underdistention. Small and large bowel loops are of normal caliber. No small bowel obstruction. Appendix is within normal limits. ABDOMINAL WALL: No significant hernia is appreciated. LYMPH NODES: No bulky lymphadenopathy. VASCULAR: Normal caliber abdominal aorta. PELVIC VISCERA: Uterus is surgically absent. Small free fluid in pelvis. OSSEOUS STRUCTURES: Severe compression fracture of T12 vertebral body. CT/CT abdomen pelvis w IV con IMPRESSION: Irregular wall thickening of the urinary bladder with submucosal enhancement. There are foci of gas within the nondependent portion. There is soft tissue density surrounding the Pham catheter within the bladder lumen possibly representing blood products. There is perivesicular stranding. Consider correlation with cystoscopy. Gastric wall thickening despite underdistention. Advise correlation with direct visualization. No change in biliary ductal dilatation and proximal dilatation of the main pancreatic duct. Distended gallbladder with mild gallbladder wall thickening. An ampullary lesion cannot be excluded. ERCP may be considered.
--- NOTE | 2023-08-22 10:19 | ECG_ITS ---
Test Reason : tachy Blood Pressure : / mmHG Vent. Rate : 115 BPM Atrial Rate : 115 BPM P-R Int : 170 ms QRS Dur : 084 ms QT Int : 342 ms P-R-T Axes : 027 -09 037 degrees QTc Int : 473 ms Sinus tachycardia Cannot rule out Inferior infarct , age undetermined Anterior infarct , age undetermined Abnormal ECG When compared with ECG of 16-AUG-2023 16:44, Premature atrial complexes are no longer Present Anterior infarct is now Present Minimal criteria for Inferior infarct are now Present Referred By: Generic ED Physician Electronically Signed By:FREDDY TREJO
[2023-08-22 11:02] LABS: MANUAL DIFF FLAG NO
[2023-08-22 11:03] LABS: Basophils Percent Auto 0.1 % (0-2); Eosinophils Absolute Auto 0.1 X10*3/uL (0.0-0.4); Eosinophils Percent Auto 0.6 % (0-4); Hematocrit 39.5 % (37.0-47.0); Hemoglobin 13.5 g/dl (12.0-16.0); Imm Gran Abs Auto 0.07 X10*3/uL (0.00-0.03); Imm Gran Pct Auto 0.5 % (0.0-0.4); Lymphocytes Absolute Auto 0.9 X10*3/uL (1.2-4.9); Lymphocytes Percent Auto 6.8 % (20-40); Mean Corpuscular HGB Conc 34.2 g/dl (31.0-35.0); Mean Corpuscular Hemoglobin 31.8 pg (27.0-33.0); Mean Corpuscular Volume 92.9 fL (80.0-98.0); Monocytes Absolute Auto 1.5 X10*3/uL (0.1-1.2); Monocytes Percent Auto 10.9 % (2-11); Neutrophils Percent Auto 81.1 % (45-73); Platelet Count 281 X10*3/uL (160-400); Red Blood Count 4.25 X10*6/uL (4.20-5.50); Red Cell Distribution Width 12.6 % (11.0-16.0); White Blood Count 13.5 X10*3/uL (4.8-10.8)
[2023-08-22 11:11] LABS: Appearance Urine Cloudy; Color Urine RED; Prothrombin Time 11.7 SEC (11.1-13.3); Specific Gravity - Urine 1.015 (1.005-1.025); UMIC TRIGGER UACC YES; Urine Blood Large (3+) (Negative)
[2023-08-22 11:17] LABS: Alanine Aminotransferase 80 U/L (0-31); Alkaline Phosphatase 121 U/L (39-117); Anion Gap 14 (12-20); Aspartate Amino Transferase 33 U/L (5-31); Bilirubin Direct 0.7 mg/dL (0.0-0.5); Bilirubin Total 1.3 mg/dL (0.0-1.0); Blood Urea Nitrogen 18 mg/dL (9-16); Calcium 9.6 mg/dL (8.4-10.2); Carbon Dioxide 23 mmol/L (22-29); Chloride 101 mmol/L (96-108); Creatinine Clr Calc Pharmacy 45.2; Estimated Glomerular Filt Rate > 60; Glucose Random 123 mg/dL (60-115); Lipase 7 U/L (8-78); Magnesium 1.5 mg/dL (1.6-2.6); Potassium 3.6 mmol/L (3.3-5.1); Sodium 134 mmol/L (135-145); Total Protein 7.3 g/dL (6.5-8.0)
[2023-08-22 11:30] LABS: OBS Int Ctl Valid YES; OBS1 POSITIVE (NEGATIVE)
[2023-08-22 11:36] LABS: Bacteria Urine 4+ (None Seen); Hyaline Casts Urine 0-2 /LPF (0-2); RBC Urine >20 /HPF (0-2); Squamous Epithelial Cell Urine 0-2 /HPF (0-2); UACC Culture Trigger YES
[2023-08-22 11:41] LABS: Lactic Acid 1.2 mmol/L (0.5-2.0)
[2023-08-22] MEDS: iohexoL 350 MG/ML 100 ML INFUS..BTL 85 ML IV (12:12)
--- NOTE | 2023-08-22 12:40 | ED_ITS ---
HPI - General Adult General Chief complaint: General Medical Stated complaint: RECTAL & VAGINAL BLEED,L ABD PAIN PER EMS Time Seen by Provider: 08/22/23 10:08 Source: patient and family Mode of arrival: EMS Limitations: no limitations History of Present Illness HPI narrative: 88 yo female with PMH of GERD, HTN, HPL just seen her and dx with possible pancreatic head lesion was to follow up with PCP for MRI or MRCP/US. She comes in today as she was having blood in toilet and underwear she is not sure exactly where it is coming from. She has lower abdominal pain. She has never had a GIB bleed before. On arrival she had prasad hematuria. She has no n/v. She is not on thinners. No hx of renal colic MD complaint: hematuria Onset (ago): day(s) (last night) Location: abdomen Radiation: non-radiation Severity: moderate Quality: aching Pain Consistency: intermittent Relieving factors: none Exacerbating factors: none Associated symptoms: other (gross hematuria) Treatments prior to arrival: none Related Data Home Medications Medication Instructions Recorded Confirmed labetalol 100 mg tablet 100 mg PO BID@1000,1700 01/20/21 08/22/23 lisinopril 10 mg tablet 10 mg PO BID@0800,1300 01/20/21 08/22/23 cholecalciferol (vitamin D3) 25 25 mcg PO DAILY 08/22/23 08/22/23 mcg (1,000 unit) tablet Allergies Allergy/AdvReac Type Severity Reaction Status Date / Time Seasonal Allergies Allergy Itchy Eyes Verified 08/16/23 14:26 Review of Systems 2 Review of Systems: Constitutional : No Weight loss, No Fever, No Chills ENT/Mouth : No sore throat, No Rhinorrhea Eyes: No Swelling, No Redness Cardiovascular : No Chest Pain, No SOB, NoEdema Respiratory : No Cough, No Sputum, No Wheezing Gastrointestinal : no Nausea, no Vomiting, no Diarrhea, positive abdominal Pain, No Hematochezia, No Melena Genitourinary : No Dysuria, pos Urinary Frequency, pos Hematuria, No Urgency Musculoskeletal : No joint pain, No Myalgias, No Joint Swelling Skin : No Skin Lesions, No rash Neuro : No Weakness, No Numbness, No Dizziness, No Headache Psych : No Anxiety/Panic, No Depression Heme/Lymph: No Bruising, No Lymphadenopathy Endocrine : No Polyuria, No Polydipsia All other systems reviewed and are negative. [facility] Past Medical History Attestation statement: The following information was validated with the patient. Source: old records reviewed Medical History Fracture of sternum, closed (~01/2015) Wedge compression fracture of T12 vertebra Common bile duct dilation Pulmonary nodules Multinodular goiter Tracheal deviation Osteopenia Hyperlipidemia GERD (gastroesophageal reflux disease) HTN (hypertension) Surgical History Hx of appendectomy History of colonoscopy History of hernia repair History of hysterectomy Family History Family History Brother Rectal cancer Father Myocardial infarction Mother Breast cancer Social History Social History Alcohol intake: never Smoked in Last 30 Days: No Use of substances other than those prescribed or required for medical reasons: No Advance Directives: No Advance Directives Information Provided: No Physical Exam ED Vital Signs: Vital Signs - 24 hr 08/22/23 10:19 08/22/23 10:23 08/22/23 11:30 Temperature 98.2 F 99.0 F Pulse Rate 115 H Respiratory Rate 16 16 Blood Pressure 176/98 H Pulse Oximetry 96 Oxygen Delivery Method Room Air 08/22/23 12:24 08/22/23 12:49 Temperature 98.1 F Pulse Rate 118 H 120 H Respiratory Rate 17 18 Blood Pressure 173/95 H 172/101 H Pulse Oximetry 98 97 Oxygen Delivery Method Room Air Room Air BMI result Body Mass Index 22.9 Appearance: Alert. Oriented X3. No acute distress. Eyes: Pupils equal, round and reactive to light. ENT: Pharynx normal. Neck: Normal inspection. Neck supple. CVS: Normal heart rate and rhythm. Pulses normal. Respiratory: No respiratory distress. Breath sounds normal. Abdomen: Soft and mild suprapubic ttp Rectal: there was red urine likely that contaminated area she has light brown stool Skin: Skin warm and dry. Normal skin color. Normal skin turgor. Extremities: No lower extremity edema. No calf ttp Neuro: Oriented X 3. No motor deficit. No sensory deficit. Course Course Course Narrative: UA has bacteria and WBC cells given this and new onset hematuria I am going to start on ceftriaxone in case of hemorrhage cystitis - infection suspected 1242pm Medications Administered Discontinued Medications Generic Name Dose Route Start Last Admin Trade Name Georgiana PRN Reason Stop Dose Admin Magnesium Sulfate 2 gm in 50 mls @ 25 mls/hr 08/22/23 11:58 08/22/23 12:50 Magnesium Sulfate/H2o IV 08/22/23 13:57 25 mls/hr ONCE ONE Administration Ceftriaxone Sodium 1 gm/ 50 mls @ 100 mls/hr 08/22/23 12:42 08/22/23 12:51 Sodium Chloride IV 08/22/23 13:11 100 mls/hr ONCE ONE Administration Iohexol 85 ml 08/22/23 12:12 08/22/23 12:12 Iohexol 350 Mg/Ml 100 Ml Infus..Btl IV 08/22/23 12:13 85 ml ONCE ONE Administration Labetalol HCl 100 mg 08/22/23 12:45 08/22/23 12:57 Labetalol Hcl 100 Mg Tablet PO 08/22/23 12:46 100 mg ONCE ONE Administration Protocol Medical Decision Making Medical Decision Making MDM Narrative: 88 yo female with PMH of GERD, HTN, HPL here with c/o what she thought was rectal and vaginal bleeding but on physical examination is gross hematuria at this time will obtain basic labs, cultures, lactic acid CT scan for renal colic, mass, place singh. She has never had this before denies falls or trauma. Just had recent workup for possible pancreatic lesion and is due fo outpatient US or MRCP. She is not on thinners. Likely admit given degree of hematuria. Differential Diagnosis Differential Diagnoses: The differential diagnosis associated with the presentation includes stone, mass, hematuria, infection Admission/Observation Consideration of admission/observation: Escalation of care including admission/observation considered will admit for hematuria Consult Healthcare Provider Management of the patient was discussed with: Hospitalist (will admit) and Freelance Photographer (Dr. Jett notified) Dr. Jett can eat no emergent procedure Lab Data [facility] Lab Attestation statement: I reviewed the patient's lab results. 08/22/23 10:56 08/22/23 10:56 Labs: Lab Results 08/22/23 08/22/23 08/22/23 Range/Units 10:56 11:19 14:13 WBC 13.5 H (4.8-10.8) X10*3/uL RBC 4.25 (4.20-5.50) X10*6/uL Hgb 13.5 (12.0-16.0) g/dl Hct 39.5 (37.0-47.0) % MCV 92.9 (80.0-98.0) fL MCH 31.8 (27.0-33.0) pg MCHC 34.2 (31.0-35.0) g/dl RDW 12.6 (11.0-16.0) % Plt Count 281 (160-400) X10*3/uL MPV 10.0 (9.4-12.3) fL Immature Gran % (Auto) 0.5 H (0.0-0.4) % Neut % (Auto) 81.1 H (45-73) % Lymph % (Auto) 6.8 L (20-40) % [place] % (Auto) 10.9 (2-11) % Eos % (Auto) 0.6 (0-4) % Baso % (Auto) 0.1 (0-2) % Lymph # (Auto) 0.9 L (1.2-4.9) X10*3/uL [place] # (Auto) 1.5 H (0.1-1.2) X10*3/uL Eos # (Auto) 0.1 (0.0-0.4) X10*3/uL Baso # (Auto) 0.0 (0.0-0.2) X10*3/uL Abs Immat Gran (auto) 0.07 H (0.00-0.03) X10*3/uL Absolute Neuts (auto) 11.0 H (2.0-8.3) x10*3/uL Absolute Nucleated RBC 0.000 (0.0-0.012) X10*3/uL Nucleated RBC % (auto) 0.0 (0.0-0.2) /100WBC PT 11.7 (11.1-13.3) SEC INR 1.0 (0.9-1.1) Sodium 134 L (135-145) mmol/L Potassium 3.6 (3.3-5.1) mmol/L Chloride 101 (96-108) mmol/L Carbon Dioxide 23 (22-29) mmol/L Anion Gap 14 (12-20) BUN 18 H (9-16) mg/dL Creatinine 0.82 (0.5-1.4) mg/dL Estim Creat Clear Calc 45.2 Estimated GFR > 60 Random Glucose 123 H (60-115) mg/dL Lactic Acid 1.2 (0.5-2.0) mmol/L Calcium 9.6 (8.4-10.2) mg/dL Magnesium 1.5 L (1.6-2.6) mg/dL Total Bilirubin 1.3 H (0.0-1.0) mg/dL Direct Bilirubin 0.7 H (0.0-0.5) mg/dL AST 33 H (5-31) U/L ALT 80 H (0-31) U/L Alkaline Phosphatase 121 H (39-117) U/L Total Protein 7.3 (6.5-8.0) g/dL Albumin 4.0 (3.5-5.0) g/dL Lipase 7 L (8-78) U/L Urine Color RED Urine Appearance Cloudy Urine pH 7.0 (5.0-9.0) Ur Specific [place] 1.015 (1.005-1.025) Urine Protein See Note (Neg-Trace) mg/dL Urine Glucose (UA) See Note (Negative) mg/dL Urine Ketones See Note (Negative) mg/dL Urine Blood Large (3+) H (Negative) Urine Nitrite See Note (Negative) Ur Leukocyte Esterase See Note (Negative) Urine RBC >20 H (0-2) /HPF Urine WBC 11-20 (0-5) /HPF Ur Squamous Epith Cells 0-2 (0-2) /HPF Urine Bacteria 4+ (None Seen) Hyaline Casts 0-2 (0-2) /LPF Stool Occult Blood POSITIVE (NEGATIVE) COVID-19 (ABELINO) Negative (Negative) COVID-19 Clin Com See Note Blood Type O Positive Antibody Screen NEGATIVE Independent Interpretation I performed an independent interpretation of an: EKG and CT Scan (inflammed bladder) Interpretation: Rate: 115 Rhythm: sinus tachycardia [place]: left Normal P waves. Normal SOUTH. Normal QRS complex. ST T wave : no KATHIA [id number]: prior studies: no acute ischemia The study has been interpreted contemporaneously by me. . Radiology Impression Discussion of test interpretation with radiology: I have reviewed the radiologist's reading. Independent Historian Clinical information obtained from an independent historian. History obtained from or confirmed by: Other (family) External Record Review External record reviewed: Inpatient record Critical Care Time Critical Care Time Critical Care Time: Yes Total Critical Care Time: 35 Attestation: repletion of IV magnesium. monitoring of hematuria, consult I attest to this time spent taking care of the patient Discharge Plan Discharge Clinical Impression: Acute hemorrhagic cystitis, Hypomagnesemia Hematuria Qualifiers: Hematuria type: gross Qualified Code(s): R31.0 - Gross hematuria Elevated WBC count Qualifiers: Leukocytosis type: unspecified Qualified Code(s): D72.829 - Elevated white blood cell count, unspecified Patient Disposition: Admitted As Inpatient
[2023-08-22] MEDS: Magnesium Sulfate/H2O 2 GM/50 ML PIGGYBACK IV (12:50)
[2023-08-22] MEDS: cefTRIAXone sodium 1 GM in 0.9 % Sodium Chloride 50 ML IV (12:51)
[2023-08-22] MEDS: Labetalol HCL 100 MG TABLET PO ×2 (12:57→17:13)
[2023-08-22 14:30] LABS: COVID-19 Test Negative (Negative); IDNOW Serial# 08D9AD1C
--- NOTE | 2023-08-22 14:54 | PHA.MEDREC ---
Pharmacy Consult ? Medication Reconciliation Pharmacy has completed the medication reconciliation. Patient reported medicaitons. Johana Beebe, ElieserD
--- NOTE | 2023-08-22 15:26 | PC.NURSE ---
Pt resting comfortably- no acute distress- pt denies pain-VSS
--- NOTE | 2023-08-22 16:08 | PC.NURSE ---
Assumed care of pt at 15:30. Currently laying in bed, appears in no apparent distress, resp even and unlabored and offers no complaints to this conventional underwriter. Urine noted to be dark red/brown with small clots mixed in. 800mls emptied from singh. Pending admission at this time, awaiting bed assignment. Plan of care ongoing.
--- NOTE | 2023-08-22 16:12 | PM.IMHP ---
History of Present Illness Date of Service: 08/22/23 Chief Complaint: Hematuria A 88-year-old female past medical history of GERD, hypertension recently seen in ER diagnosed with possible pancreatic head lesion. Was to follow-up with PCP for MRI or MRCP/ultrasound. Today she developed blood in the toilet with some clots in the absence of dysuria symptoms. She denies fever chills. She states over the last 48 hours her urine has gone from light red to dark reddish purple. In the emergency room noted to have gross hematuria along with a white count of 13.5. Culture sent; admission requested Review of Systems Review of Systems: Denies chest pain Denies shortness of breath Denies nausea vomiting diarrhea Denies fever chills PMFSH Medical History Fracture of sternum, closed (~01/2015) Wedge compression fracture of T12 vertebra Common bile duct dilation Pulmonary nodules Multinodular goiter Tracheal deviation Osteopenia Hyperlipidemia GERD (gastroesophageal reflux disease) HTN (hypertension) Family History Brother Rectal cancer Father Myocardial infarction Mother Breast cancer Surgical History Hx of appendectomy History of colonoscopy History of hernia repair History of hysterectomy Social History Alcohol intake: never Smoked in Last 30 Days: No Use of substances other than those prescribed or required for medical reasons: No Advance Directives: No Advance Directives Information Provided: No Meds Allergies Allergy/AdvReac Type Severity Reaction Status Date / Time Seasonal Allergies Allergy Itchy Eyes Verified 08/16/23 14:26 Active Medications: Current Medications Acetaminophen (Acetaminophen 325 Mg Tablet) 650 mg PO Q6H PRN PRN Reason: Pain, Mild (Pain Scale 1-3) Ceftriaxone Sodium 1 gm/ (Sodium Chloride) 50 mls @ 100 mls/hr IV DAILY ONE Stop: 08/23/23 13:29 Labetalol HCl (Labetalol Hcl 100 Mg Tablet) 100 mg PO BID@1000,1700 CARLIN; Protocol Lisinopril (Lisinopril 10 Mg Tablet) 10 mg PO BID@0800,1300 CARLIN; Protocol Magnesium Hydroxide (Milk Of Magnesia 30 Ml Oral.Susp) 30 ml PO DAILY PRN PRN Reason: Constipation Ondansetron HCl (Ondansetron Hcl 4 Mg/2 Ml Vial) 4 mg IVPUSH Q8H PRN PRN Reason: Nausea and Vomiting Sodium Chloride (0.9 % Sodium Chloride Flush 3 Ml Syringe) 3 ml IVFLUSH QSHIFT [facility]1983 Vitamin D (Cholecalciferol (Vitamin D3) 25 Mcg Tablet) 25 mcg PO DAILY [facility] Home Medications Medication Instructions Recorded Confirmed Last Taken Type labetalol 100 mg tablet 100 mg PO BID@1000,1700 01/20/21 08/22/23 08/22/23 History lisinopril 10 mg tablet 10 mg PO BID@0800,1300 01/20/21 08/22/23 08/22/23 History cholecalciferol (vitamin D3) 25 25 mcg PO DAILY 08/22/23 08/22/23 08/22/23 History mcg (1,000 unit) tablet Physical Exam Vital Signs and Narrative: Vital Signs: Last Vital Signs Temp 97.6 F 08/22/23 15:39 Pulse 102 H 08/22/23 15:39 Resp 20 08/22/23 15:39 BP 130/83 08/22/23 15:39 Pulse Ox 95 08/22/23 15:39 O2 Del Method Room Air 08/22/23 15:39 BMI result Body Mass Index 22.9 Const: Other: Awake alert no acute distress Resp: Other: Clear to auscultation bilaterally no rales rhonchi or wheezes Cardio: Other: No S4; positive S1-S2; no S3 murmurs rubs or gallops GI: Other: Soft nontender nondistended normoactive bowel sounds : Other: Pham in place; purplish black liquid in bag Neuro: Other: Cranial nerves 2-12 grossly intact as tested. Motor is 5/5 all extremities. Sensation is intact. Cognition appropriate Extrem: Other: No edema bilaterally Results Labs 08/22/23 10:56 08/22/23 10:56 Labs: Laboratory Results - last 24 hr 08/22/23 08/22/23 08/22/23 10:56 11:19 14:13 MCV 92.9 MCH 31.8 MCHC 34.2 RDW 12.6 Plt Count 281 MPV 10.0 Immature Gran % (Auto) 0.5 H Neut % (Auto) 81.1 H Lymph % (Auto) 6.8 L [place] % (Auto) 10.9 Eos % (Auto) 0.6 Baso % (Auto) 0.1 Lymph # (Auto) 0.9 L [place] # (Auto) 1.5 H Eos # (Auto) 0.1 Baso # (Auto) 0.0 Abs Immat Gran (auto) 0.07 H Absolute Neuts (auto) 11.0 H Absolute Nucleated RBC 0.000 Nucleated RBC % (auto) 0.0 PT 11.7 INR 1.0 Anion Gap 14 Estim Creat Clear Calc 45.2 Estimated GFR > 60 Random Glucose 123 H Lactic Acid 1.2 Calcium 9.6 Magnesium 1.5 L Total Bilirubin 1.3 H Direct Bilirubin 0.7 H AST 33 H ALT 80 H Alkaline Phosphatase 121 H Total Protein 7.3 Albumin 4.0 Lipase 7 L Urine Color RED Urine Appearance Cloudy Urine pH 7.0 Ur Specific [place] 1.015 Urine Protein See Note Urine Glucose (UA) See Note Urine Ketones See Note Urine Blood Large (3+) H Urine Nitrite See Note Ur Leukocyte Esterase See Note Urine RBC >20 H Urine WBC 11-20 Ur Squamous Epith Cells 0-2 Urine Bacteria 4+ Hyaline Casts 0-2 Stool Occult Blood POSITIVE COVID-19 (ABELINO) Negative COVID-19 Clin Com See Note Blood Type O Positive Antibody Screen NEGATIVE Imaging Radiologist's Impressions: Impressions Abdomen/Pelvis CT 08/22/23 12:20 IMPRESSION: Irregular wall thickening of the urinary bladder with submucosal enhancement. There are foci of gas within the nondependent portion. There is soft tissue density surrounding the Pham catheter within the bladder lumen possibly representing blood products. There is perivesicular stranding. Consider correlation with cystoscopy. Gastric wall thickening despite underdistention. Advise correlation with direct visualization. No change in biliary ductal dilatation and proximal dilatation of the main pancreatic duct. Distended gallbladder with mild gallbladder wall thickening. An ampullary lesion cannot be excluded. ERCP may be considered. Assessment and Plan (1) Acute hemorrhagic cystitis: Status: Acute (2) Pancreatic ductal abnormality: Status: Acute Plan 88-year-old female recently seen at [facility] 08/16/2023 for diffuse abdominal pain. CT at that time demonstrated intra and extrahepatic biliary ductal dilatation along with a dilated main pancreatic duct. These findings were suspicious for pancreatic head lesion. She was scheduled for follow-up as an outpatient and returned today as over the last 48 hours her urine went from light red to dark reddish black in nature. Throughout this episode she had been asymptomatic. ER workup consistent with gross hematuria; given 1 g of ceftriaxone. 1. Gross hematuria -med to general medical floor -ceftriaxone 1 g IV daily -urine and blood cultures pending -Urology consult in a.m. 2. Pancreatic ductal abnormality -asymptomatic -consult GI Patient will require at least 2 midnights inpatient stay going forward for antibiotic treatment to treat suspected hemorrhagic cystitis and specialty consultation. This can not be achieved a lesser acute setting Quality Stroke Does the patient have a stroke diagnosis?: No VTE Prior VTE?: No VTE Risk Level:: Medical - moderate - high VTE Device Contraindication: N/A - Device Ordered VTE Drug Contraindication: Treatment Not Indicated
--- NOTE | 2023-08-22 17:32 | PM.UROCN ---
History of Present Illness Consult details Consult date: 08/22/23 Narrative: CC: Hemorrhagic cystitis An 88-year-old female Presented to emergency room with blood in urine Denies fever, chills States urine has worsened over past 48 hours WBC 13.5 UA positive bacteria, difficult to assess nitrites Has Pham catheter in place Recommend treatment is complicated UTI Culture pending Continue ceftriaxone until urine culture resulted May follow as urology outpatient Review of Systems Constitutional: Constitutional: Reports as per HPI and Reports no additional constitutional complaints Cardiovascular: Cardiovascular: Reports as per HPI and Reports no additional cardiovascular complaints Respiratory: Respiratory: Reports as per HPI and Reports no additional respiratory complaints Gastrointestinal: Gastrointestinal: Reports as per HPI and Reports no additional gastrointestinal complaints Genitourinary: Genitourinary: Reports as per HPI Musculoskeletal: Musculoskeletal: Reports no additional musculoskeletal complaints and Reports as per HPI Neurologic: Reports system reviewed and no additional complaints, except as documented and Reports as per HPI PMFSH Past Medical History Medical History Fracture of sternum, closed (~01/2015) Wedge compression fracture of T12 vertebra Common bile duct dilation Pulmonary nodules Multinodular goiter Tracheal deviation Osteopenia Hyperlipidemia GERD (gastroesophageal reflux disease) HTN (hypertension) Family History Family History Brother Rectal cancer Father Myocardial infarction Mother Breast cancer Surgical History Surgical History Hx of appendectomy History of colonoscopy History of hernia repair History of hysterectomy Social History Social History Alcohol intake: never Smoked in Last 30 Days: No Use of substances other than those prescribed or required for medical reasons: No Advance Directives: No Advance Directives Information Provided: No Meds Allergies Allergy/AdvReac Type Severity Reaction Status Date / Time Seasonal Allergies Allergy Itchy Eyes Verified 08/16/23 14:26 Active Medications: Current Medications Acetaminophen (Acetaminophen 325 Mg Tablet) 650 mg PO Q6H PRN PRN Reason: Pain, Mild (Pain Scale 1-3) Ceftriaxone Sodium 1 gm/ (Sodium Chloride) 50 mls @ 100 mls/hr IV DAILY ONE Stop: 08/23/23 13:29 Labetalol HCl (Labetalol Hcl 100 Mg Tablet) 100 mg PO BID@1000,1700 [facility]; Protocol Last Admin: 08/22/23 17:13 Dose: 100 mg Lisinopril (Lisinopril 10 Mg Tablet) 10 mg PO BID@0800,1300 [facility]; Protocol Magnesium Hydroxide (Milk Of Magnesia 30 Ml Oral.Susp) 30 ml PO DAILY PRN PRN Reason: Constipation Ondansetron HCl (Ondansetron Hcl 4 Mg/2 Ml Vial) 4 mg IVPUSH Q8H PRN PRN Reason: Nausea and Vomiting Sodium Chloride (0.9 % Sodium Chloride Flush 3 Ml Syringe) 3 ml IVFLUSH QSHIFT [facility] Vitamin D (Cholecalciferol (Vitamin D3) 25 Mcg Tablet) 25 mcg PO DAILY [facility] Home Medications Medication Instructions Recorded Confirmed Last Taken Type labetalol 100 mg tablet 100 mg PO BID@1000,1700 01/20/21 08/22/23 08/22/23 History lisinopril 10 mg tablet 10 mg PO BID@0800,1300 01/20/21 08/22/23 08/22/23 History cholecalciferol (vitamin D3) 25 25 mcg PO DAILY 08/22/23 08/22/23 08/22/23 History mcg (1,000 unit) tablet Physical Exam Vital Signs: Vital Signs: Last Vital Signs Temp 97.6 F 08/22/23 15:39 Pulse 106 H 08/22/23 17:10 Resp 20 08/22/23 15:39 BP 142/80 H 08/22/23 17:10 Pulse Ox 95 08/22/23 15:39 O2 Del Method Room Air 08/22/23 15:39 BMI result Body Mass Index 22.9 Const: General: cooperative, healthy appearing, comfortable and no acute distress Orientation/consciousness: patient oriented x3 HEENT: Face and sinus: Yes normal facial exam Mouth: moist mucous membranes Neck: Neck: Yes normal visual inspection, Yes full ROM and Yes trachea midline Chest: Chest palpation & inspection: normal inspection of the chest Resp: Effort & Inspection: normal respiratory effort, able to speak in complete sentences and no respiratory distress GI: Inspection: Yes normal to inspection Back/Spine/Pelvis: Cervical Spine: normal cervical lordosis Thoracic/Lumbar Spine: thoracic and lumbar spine normal to inspection Skin: General skin exam: no rashes or lesions noted Neuro: General: patient oriented x3, tone normal and moves all extremities Extrem: General: Yes normal to inspection and Yes capillary refill normal Results Labs 08/22/23 10:56 08/22/23 10:56 Labs: Abnormal lab results 08/22/23 Range/Units 10:56 WBC 13.5 H (4.8-10.8) X10*3/uL Immature Gran % (Auto) 0.5 H (0.0-0.4) % Neut % (Auto) 81.1 H (45-73) % Lymph % (Auto) 6.8 L (20-40) % Lymph # (Auto) 0.9 L (1.2-4.9) X10*3/uL [place] # (Auto) 1.5 H (0.1-1.2) X10*3/uL Abs Immat Gran (auto) 0.07 H (0.00-0.03) X10*3/uL Absolute Neuts (auto) 11.0 H (2.0-8.3) x10*3/uL Sodium 134 L (135-145) mmol/L BUN 18 H (9-16) mg/dL Random Glucose 123 H (60-115) mg/dL Magnesium 1.5 L (1.6-2.6) mg/dL Total Bilirubin 1.3 H (0.0-1.0) mg/dL Direct Bilirubin 0.7 H (0.0-0.5) mg/dL AST 33 H (5-31) U/L ALT 80 H (0-31) U/L Alkaline Phosphatase 121 H (39-117) U/L Lipase 7 L (8-78) U/L Urine Blood Large (3+) H (Negative) Urine RBC >20 H (0-2) /HPF Short CBC 08/22/23 Range/Units 10:56 WBC 13.5 H (4.8-10.8) X10*3/uL Hgb 13.5 (12.0-16.0) g/dl Hct 39.5 (37.0-47.0) % Plt Count 281 (160-400) X10*3/uL BMP 08/22/23 10:56 Sodium 134 L Potassium 3.6 Chloride 101 Carbon Dioxide 23 BUN 18 H Creatinine 0.82 Calcium 9.6 Liver Function 08/22/23 Range/Units 10:56 Total Bilirubin 1.3 H (0.0-1.0) mg/dL Direct Bilirubin 0.7 H (0.0-0.5) mg/dL AST 33 H (5-31) U/L ALT 80 H (0-31) U/L Alkaline Phosphatase 121 H (39-117) U/L Albumin 4.0 (3.5-5.0) g/dL Urine 08/22/23 Range/Units 10:56 Urine Color RED Urine Appearance Cloudy Urine pH 7.0 (5.0-9.0) Ur Specific [place] 1.015 (1.005-1.025) Urine Protein See Note (Neg-Trace) mg/dL Urine Glucose (UA) See Note (Negative) mg/dL All other labs normal. Assessment and Plan (1) Acute hemorrhagic cystitis: Status: Acute (2) Complicated urinary tract infection: Status: Acute Plan Broad-spectrum antibiotics Targeted oral antibiotics when urine culture complete Outpatient follow-up Procedures Date of Service Date of Service: 08/22/23
--- NOTE | 2023-08-22 18:32 | PC.NURSE ---
drained 800ml from pt's fc. Urine dark tea color with small clots.
[2023-08-22] MEDS: 0.9 % Sodium Chloride Flush 3 ML SYRINGE IVFLUSH (23:45)
[2023-08-23] VITALS (7 sets, daily range): BP systolic 91–139; BP diastolic 51–67; PULSE 94–100; RESP 12–18; TEMP 36.4–37.1; O2SAT 93–95; BMI 21.3
[2023-08-23 07:20] LABS: MANUAL DIFF FLAG NO
[2023-08-23 07:23] LABS: Basophils Percent Auto 0.3 % (0-2); Eosinophils Absolute Auto 0.4 X10*3/uL (0.0-0.4); Eosinophils Percent Auto 3.7 % (0-4); Hematocrit 34.1 % (37.0-47.0); Hemoglobin 11.6 g/dl (12.0-16.0); Imm Gran Abs Auto 0.07 X10*3/uL (0.00-0.03); Imm Gran Pct Auto 0.6 % (0.0-0.4); Lymphocytes Absolute Auto 1.4 X10*3/uL (1.2-4.9); Lymphocytes Percent Auto 12.3 % (20-40); Mean Corpuscular Volume 93.9 fL (80.0-98.0); Mean Platelet Volume 10.5 fL (9.4-12.3); Monocytes Absolute Auto 1.5 X10*3/uL (0.1-1.2); Monocytes Percent Auto 12.8 % (2-11); Neutrophils Percent Auto 70.3 % (45-73); Platelet Count 251 X10*3/uL (160-400); Red Blood Count 3.63 X10*6/uL (4.20-5.50); Red Cell Distribution Width 12.8 % (11.0-16.0); White Blood Count 11.4 X10*3/uL (4.8-10.8)
[2023-08-23] MEDS: 0.9 % Sodium Chloride Flush 3 ML SYRINGE IVFLUSH ×3 (07:35→20:38)
[2023-08-23] MEDS: Magnesium Sulfate/H2O 2 GM/50 ML PIGGYBACK IV (07:38)
[2023-08-23 07:39] LABS: Alanine Aminotransferase 61 U/L (0-31); Albumin Level 3.4 g/dL (3.5-5.0); Alkaline Phosphatase 103 U/L (39-117); Anion Gap 13 (12-20); Aspartate Amino Transferase 34 U/L (5-31); Bilirubin Total 0.7 mg/dL (0.0-1.0); Blood Urea Nitrogen 19 mg/dL (9-16); Carbon Dioxide 24 mmol/L (22-29); Chloride 104 mmol/L (96-108); Creatinine Clr Calc Pharmacy 44.6; Estimated Glomerular Filt Rate > 60; Glucose Random 102 mg/dL (60-115); Potassium 3.4 mmol/L (3.3-5.1); Sodium 138 mmol/L (135-145); Total Protein 6.2 g/dL (6.5-8.0)
[2023-08-23] MEDS: Cholecalciferol (Vitamin D3) 25 MCG TABLET PO (07:42)
[2023-08-23] MEDS: lisinopriL 10 MG TABLET PO (07:42)
[2023-08-23] MEDS: Acetaminophen 325 MG TABLET 650 MG PO (07:56)
--- NOTE | 2023-08-23 08:46 | PM.UROCN ---
History of Present Illness Consult details Consult date: 08/23/23 Narrative: Mariya is an 88-year-old female who presented to the ED due to gross hematuria. 08/22/2023 CT scan findings: Bladder notes inflammatory changes and possible blood clots. The patient has had evaluation for pancreatic lesion had prior CT scan on 08/16/2023 urinary tract was essentially within normal limits on that imaging. Review of Systems Review of Systems: 10 point review of systems negative other than stated in [facility] Past Medical History Medical History Fracture of sternum, closed (~01/2015) Wedge compression fracture of T12 vertebra Common bile duct dilation Pulmonary nodules Multinodular goiter Tracheal deviation Osteopenia Hyperlipidemia GERD (gastroesophageal reflux disease) HTN (hypertension) Family History Family History Brother Rectal cancer Father Myocardial infarction Mother Breast cancer Surgical History Surgical History Hx of appendectomy History of colonoscopy History of hernia repair History of hysterectomy Social History Social History Household Members: None Housing: Apartment Do you presently have visiting nurse or other home services: No Unable to assess alcohol history related to: Unknown Alcohol intake: never Patient Tobacco Use Status: Former Tobacco user Tobacco use type: Cigarette service: No Meds Allergies Allergy/AdvReac Type Severity Reaction Status Date / Time Seasonal Allergies Allergy Itchy Eyes Verified 08/16/23 14:26 Active Medications: Current Medications Acetaminophen (Acetaminophen 325 Mg Tablet) 650 mg PO Q6H PRN PRN Reason: Pain, Mild (Pain Scale 1-3) Last Admin: 08/23/23 07:56 Dose: 650 mg Ceftriaxone Sodium 1 gm/ (Sodium Chloride) 50 mls @ 100 mls/hr IV DAILY ONE Stop: 08/23/23 13:29 Magnesium Sulfate (Magnesium Sulfate/H2o) 2 gm in 50 mls @ 25 mls/hr IV ONCE ONE Stop: 08/23/23 09:15 Last Admin: 08/23/23 07:38 Dose: 25 mls/hr Labetalol HCl (Labetalol Hcl 100 Mg Tablet) 100 mg PO BID@1000,1700 [facility]; Protocol Last Admin: 08/22/23 17:13 Dose: 100 mg Lisinopril (Lisinopril 10 Mg Tablet) 10 mg PO BID@0800,1300 [facility]; Protocol Last Admin: 08/23/23 07:42 Dose: 10 mg Magnesium Hydroxide (Milk Of Magnesia 30 Ml Oral.Susp) 30 ml PO DAILY PRN PRN Reason: Constipation Ondansetron HCl (Ondansetron Hcl 4 Mg/2 Ml Vial) 4 mg IVPUSH Q8H PRN PRN Reason: Nausea and Vomiting Sodium Chloride (0.9 % Sodium Chloride Flush 3 Ml Syringe) 3 ml IVFLUSH QSHIFT [facility] Last Admin: 08/23/23 07:35 Dose: 3 ml Vitamin D (Cholecalciferol (Vitamin D3) 25 Mcg Tablet) 25 mcg PO DAILY [facility] Last Admin: 08/23/23 07:42 Dose: 25 mcg Home Medications Medication Instructions Recorded Confirmed Last Taken Type labetalol 100 mg tablet 100 mg PO BID@1000,1700 01/20/21 08/22/23 08/22/23 History lisinopril 10 mg tablet 10 mg PO BID@0800,1300 01/20/21 08/22/23 08/22/23 History cholecalciferol (vitamin D3) 25 25 mcg PO DAILY 08/22/23 08/22/23 08/22/23 History mcg (1,000 unit) tablet Physical Exam Vital Signs: Vital Signs: Last Vital Signs Temp 98.3 F 08/23/23 07:21 Pulse 100 08/23/23 07:21 Resp 12 08/23/23 07:21 BP 123/56 L 08/23/23 07:21 Pulse Ox 94 08/23/23 07:21 O2 Del Method Room Air 08/23/23 07:21 BMI result Body Mass Index 21.3 Results Labs 08/25/23 05:27 08/25/23 05:27 Labs: Abnormal lab results 08/22/23 08/23/23 Range/Units 10:56 06:32 WBC 13.5 H 11.4 H (4.8-10.8) X10*3/uL RBC 3.63 L (4.20-5.50) X10*6/uL Hgb 11.6 L (12.0-16.0) g/dl Hct 34.1 L (37.0-47.0) % Immature Gran % (Auto) 0.5 H 0.6 H (0.0-0.4) % Neut % (Auto) 81.1 H (45-73) % Lymph % (Auto) 6.8 L 12.3 L (20-40) % [facility] % (Auto) 12.8 H (2-11) % Lymph # (Auto) 0.9 L (1.2-4.9) X10*3/uL [facility] # (Auto) 1.5 H 1.5 H (0.1-1.2) X10*3/uL Abs Immat Gran (auto) 0.07 H 0.07 H (0.00-0.03) X10*3/uL Absolute Neuts (auto) 11.0 H (2.0-8.3) x10*3/uL Sodium 134 L (135-145) mmol/L BUN 18 H 19 H (9-16) mg/dL Random Glucose 123 H (60-115) mg/dL Magnesium 1.5 L (1.6-2.6) mg/dL Total Bilirubin 1.3 H (0.0-1.0) mg/dL Direct Bilirubin 0.7 H (0.0-0.5) mg/dL AST 33 H 34 H (5-31) U/L ALT 80 H 61 H (0-31) U/L Alkaline Phosphatase 121 H (39-117) U/L Total Protein 6.2 L (6.5-8.0) g/dL Albumin 3.4 L (3.5-5.0) g/dL Lipase 7 L (8-78) U/L Urine Blood Large (3+) H (Negative) Urine RBC >20 H (0-2) /HPF Short CBC 08/22/23 08/23/23 Range/Units 10:56 06:32 WBC 13.5 H 11.4 H (4.8-10.8) X10*3/uL Hgb 13.5 11.6 L (12.0-16.0) g/dl Hct 39.5 34.1 L (37.0-47.0) % Plt Count 281 251 (160-400) X10*3/uL BMP 08/22/23 08/23/23 10:56 06:32 Sodium 134 L 138 Potassium 3.6 3.4 Chloride 101 104 Carbon Dioxide 23 24 BUN 18 H 19 H Creatinine 0.82 0.83 Calcium 9.6 9.0 D Liver Function 08/22/23 08/23/23 Range/Units 10:56 06:32 Total Bilirubin 1.3 H 0.7 (0.0-1.0) mg/dL Direct Bilirubin 0.7 H (0.0-0.5) mg/dL AST 33 H 34 H (5-31) U/L ALT 80 H 61 H (0-31) U/L Alkaline Phosphatase 121 H 103 (39-117) U/L Albumin 4.0 3.4 L (3.5-5.0) g/dL Urine 08/22/23 Range/Units 10:56 Urine Color RED Urine Appearance Cloudy Urine pH 7.0 (5.0-9.0) Ur Specific [place] 1.015 (1.005-1.025) Urine Protein See Note (Neg-Trace) mg/dL Urine Glucose (UA) See Note (Negative) mg/dL Imaging Abdomen CT scan report/results: report reviewed and image reviewed CT scan - pelvis: report reviewed and image reviewed Additional studies: Date of Service: 08/22/23 EXAMINATION: CT ABDOMEN AND PELVIS WITH CONTRAST CLINICAL INFORMATION: Hematuria. COMPARISON: 08/16/2023 FINDINGS: LUNG BASES: The visualized lung bases are unremarkable. LIVER, GALLBLADDER, AND BILIARY TREE: The liver is normal in size and contour. No suspicious hepatic lesion. 1.0 cm cyst in the caudate lobe. Stable intrahepatic and extrahepatic biliary ductal dilatation. The common duct measures up to 1.5 cm on the konstantin hepatis and is unchanged. Distended gallbladder. Mild gallbladder wall thickening. No pericholecystic inflammatory changes. PANCREAS: The proximal main pancreatic duct measures up to 5 mm. SPLEEN: Not enlarged. ADRENAL GLANDS: No adrenal mass. KIDNEYS AND URETERS: The kidneys are symmetric in size and enhancement. No hydronephrosis. No perinephric stranding. BLADDER: Irregular wall thickening of the urinary bladder with submucosal enhancement. There are foci of gas within the nondependent portion. There is soft tissue density surrounding the Pham catheter within the bladder lumen. There is perivesicular stranding. GASTROINTESTINAL TRACT: Gastric wall thickening despite underdistention. Small and large bowel loops are of normal caliber. No small bowel obstruction. Appendix is within normal limits. ABDOMINAL WALL: No significant hernia is appreciated. LYMPH NODES: No bulky lymphadenopathy. VASCULAR: Normal caliber abdominal aorta. PELVIC VISCERA: Uterus is surgically absent. Small free fluid in pelvis. OSSEOUS STRUCTURES: Severe compression fracture of T12 vertebral body. IMPRESSION: Irregular wall thickening of the urinary bladder with submucosal enhancement. There are foci of gas within the nondependent portion. There is soft tissue density surrounding the Pham catheter within the bladder lumen possibly representing blood products. There is perivesicular stranding. Consider correlation with cystoscopy. Gastric wall thickening despite underdistention. Advise correlation with direct visualization. No change in biliary ductal dilatation and proximal dilatation of the main pancreatic duct. Distended gallbladder with mild gallbladder wall thickening. An ampullary lesion cannot be excluded. ERCP may be considered. Date of Service: 08/16/23 EXAMINATION: CT ABDOMEN AND PELVIS WITH CONTRAST CLINICAL INFORMATION: Upper abdominal pain COMPARISON: None available. TECHNIQUE: Multidetector volumetric images were obtained from the superior aspect of the liver through the pubic symphysis following administration 85 mL of Omnipaque 350 intravenous contrast. Sagittal and coronal reformatted images were obtained on the technologist's workstation. Oral contrast: Yes This CT examination was performed using dose optimization techniques as appropriate, variously including the following: *Automated exposure control *Adjustment of mA and/or kV according to patient size (this includes techniques or standardized protocols for targeted exams where dose is matched to indication/reason for exam; i.e. extremities or head) *Use of iterative reconstruction technique DLP: 391 mGy-cm FINDINGS: LUNG BASES: The visualized lung bases are unremarkable. LIVER, GALLBLADDER, AND BILIARY TREE: There is a 1 x 2 cm low-attenuation lesion in the caudate lobe probably representing a cyst. No other focal liver lesion. There is intra and extrahepatic biliary duct dilatation. Common bile duct measures up to 1.5 cm and is dilated down to the head of the pancreas. The gallbladder is enlarged. There is gallbladder wall edema or pericholecystic fluid. No gallstones are seen by CT. PANCREAS: The main pancreatic duct is dilated measuring up to 6 mm in the pancreas. No definite pancreatic mass is seen. SPLEEN: Unremarkable. ADRENAL GLANDS: Unremarkable. KIDNEYS AND URETERS: The kidneys are normal in size, shape, and attenuation. No hydronephrosis, hydroureter, or calculi seen. No perinephric stranding. BLADDER: Unremarkable. GASTROINTESTINAL TRACT: Mild diverticulosis colon. Long segment mild wall thickening of the left colon and splenic rupture questionable for colitis. The small and large bowel are otherwise unremarkable. The appendix is unremarkable. Injection wall thickening of the proximal stomach versus ABDOMINAL WALL: No significant hernia is appreciated. LYMPH NODES: There are multiple small peripancreatic, periportal and upper abdominal retroperitoneal lymph nodes. No enlarged lymph nodes. VASCULAR: Atherosclerotic disease. No aneurysm. PELVIC VISCERA: The uterus appears to have been removed. No pelvic mass. OSSEOUS STRUCTURES: Severe old-appearing T12 vertebral body compression fracture. Degenerative changes of the spine. Mild anterior subluxation of L4 with respect L5 probably secondary to facet arthritis. IMPRESSION: Intra and extrahepatic biliary duct dilatation and dilated gallbladder. Dilated main pancreatic duct. Findings are concerning for ampullary or pancreatic head lesion. Follow-up MR of the pancreas with MRCP recommended. Small peripancreatic lymph nodes. Diverticulosis of the colon. Long segment wall thickening of the splenic flexure and left colon questionable for mild colitis. Question mild wall thickening of the proximal stomach versus underdistention. Assessment and Plan (1) Complicated urinary tract infection: Status: Resolved (2) Gross hematuria: Status: Resolved (3) Acute hemorrhagic cystitis: Status: Resolved Plan IV antibiotics on board, white count is improved Final culture results pending No surgical intervention indicated at this time. Out patient follow, consider cysto eval at that time Procedures Date of Service Date of Service: 10/09/23
[2023-08-23] MEDS: Labetalol HCL 100 MG TABLET PO (09:06)
--- NOTE | 2023-08-23 09:30 | MHC.CM.PN ---
IMM DELIVERED LIVES ALONE IN [facility]. INDEPENDENT WITH MOBILITY BUT DOES OWN A WALKER. NO HCP BUT WILLING TO COMPLETE ONE WHILE HERE. PCP DR. WHARTON. DP: HOME, PT OPEN TO HOME SERVICES IF RECOMMENDED. DAUGHTER WILL TRANSPORT. CM WILL CONTINUE TO FOLLOW FOR ANY CHANGE IN DC NEEDS/PLAN.
--- NOTE | 2023-08-23 10:39 | PC.NURSE ---
Family updated at bedside with patients condition, no questions at this time.
[2023-08-23] MEDS: cefTRIAXone sodium 1 GM in 0.9 % Sodium Chloride 50 ML IV (12:51)
--- NOTE | 2023-08-23 12:53 | PC.NURSE ---
Lisinopril held, BP 98/54, MD notified.
--- NOTE | 2023-08-23 15:26 | P.PNIM_ITS ---
Subjective Subjective Date of Service: 08/23/23 Interval History: No acute issues overnight. Continues with hematuria Review of Systems Denies chest pain Denies shortness of breath Denies nausea vomiting diarrhea Denies fever chills Physical Exam 2 Vital Signs: Vital Signs: Last Vital Signs Temp 98.3 F 08/23/23 07:21 Pulse 95 08/23/23 13:00 Resp 12 08/23/23 07:21 BP 98/54 L 08/23/23 13:00 Pulse Ox 95 08/23/23 13:00 O2 Del Method Room Air 08/23/23 13:00 BMI result Body Mass Index 21.3 Const: Other: Awake alert no acute distress Resp: Other: Clear to auscultation bilaterally no rales rhonchi or wheezes Cardio: Other: No S4; positive S1-S2; no S3 murmurs rubs or gallops GI: Other: Soft nontender nondistended normoactive bowel sounds Extrem: Other: No edema bilaterally Objective Data Active Medications Acetaminophen (Acetaminophen 325 Mg Tablet) 650 mg PO Q6H PRN PRN Reason: Pain, Mild (Pain Scale 1-3) Last Admin: 08/23/23 07:56 Dose: 650 mg Documented By: WHITNEY Labetalol HCl (Labetalol Hcl 100 Mg Tablet) 100 mg PO BID@1000,1700 CARLIN; Protocol Last Admin: 08/23/23 09:06 Dose: 100 mg Documented By: WHITNEY Lisinopril (Lisinopril 10 Mg Tablet) 10 mg PO BID@0800,1300 CARLIN; Protocol Last Admin: 08/23/23 12:52 Dose: Not Given Documented By: WHITNEY Non-Admin Reason: BP 98/54 Magnesium Hydroxide (Milk Of Magnesia 30 Ml Oral.Susp) 30 ml PO DAILY PRN PRN Reason: Constipation Ondansetron HCl (Ondansetron Hcl 4 Mg/2 Ml Vial) 4 mg IVPUSH Q8H PRN PRN Reason: Nausea and Vomiting Sodium Chloride (0.9 % Sodium Chloride Flush 3 Ml Syringe) 3 ml IVFLUSH QSHIFT [facility] Last Admin: 08/23/23 12:49 Dose: 3 ml Documented By: WHITNEY Vitamin D (Cholecalciferol (Vitamin D3) 25 Mcg Tablet) 25 mcg PO DAILY [facility] Last Admin: 02/09/24 07:42 Dose: 25 mcg Documented By: WHITNEY Labs 08/23/23 06:32 08/23/23 06:32 Labs: Laboratory Results - last 24 hr 08/23/23 06:32 MCV 93.9 MCH 32.0 MCHC 34.0 RDW 12.8 Plt Count 251 MPV 10.5 Immature Gran % (Auto) 0.6 H Neut % (Auto) 70.3 Lymph % (Auto) 12.3 L [place] % (Auto) 12.8 H Eos % (Auto) 3.7 Baso % (Auto) 0.3 Lymph # (Auto) 1.4 [place] # (Auto) 1.5 H Eos # (Auto) 0.4 Baso # (Auto) 0.0 Abs Immat Gran (auto) 0.07 H Absolute Neuts (auto) 8.0 Absolute Nucleated RBC 0.000 Nucleated RBC % (auto) 0.0 Anion Gap 13 Estim Creat Clear Calc 44.6 Estimated GFR > 60 Random Glucose 102 Calcium 9.0 D Total Bilirubin 0.7 AST 34 H ALT 61 H Alkaline Phosphatase 103 Total Protein 6.2 L Albumin 3.4 L Microbiology Microbiology Results: Microbiology 08/22/23 Unknown Urine Culture - Final Urine Catheterized - Straight Catheter 08/22/23 11:19 Blood Culture - Preliminary Blood - Venous No growth after 24 hours. 08/22/23 10:56 Blood Culture - Preliminary Blood - Venous No growth after 24 hours. Assessment and Plan (1) Gross hematuria: Status: Acute (2) Pancreatic ductal abnormality: Status: Acute Plan 88-year-old female past medical history of GERD, hypertension recently seen in ER diagnosed with possible pancreatic head lesion. Was to follow-up with PCP for MRI or MRCP/ultrasound. Approximately 48 hours prior to admission started to develop some blood in her urine they got worse to the point of clots. She presents to ER with prasad hematuria. Urine with active sediment 1. Hematuria secondary to UTI -continue ceftriaxone 1 g Q 24h(2) -await cultures -continue Pham 2. Pancreatic duct abnormality -MRCP Will require ongoing hospitalization to treat hematuria with IV antibiotics Quality Stroke Does the patient have a stroke diagnosis?: No VTE Prior VTE?: No VTE Risk Level:: Medical - moderate - high VTE Device Contraindication: N/A - Device Ordered VTE Drug Contraindication: Treatment Not Indicated
[2023-08-23] MEDS: Lactated Ringers 1,000 ML 100 ML IVCONT (15:52)
--- NOTE | 2023-08-23 16:51 | PC.NURSE ---
BP improved with IVF
--- NOTE | 2023-08-23 16:52 | PC.NURSE ---
Keep Pt NPO, possible MRCP today. Waiting to hear from GI Team.
--- NOTE | 2023-08-23 18:04 | PC.NURSE ---
MRCP not happening today.
[2023-08-24] MEDS: Lactated Ringers 1,000 ML 100 ML IVCONT ×3 (01:54→20:04)
[2023-08-24 04:00] VITALS: BP 147/78; PULSE 78; RESP 18; TEMP 37; O2SAT 98
[2023-08-24 06:14] LABS: MANUAL DIFF FLAG NO
[2023-08-24 06:38] LABS: Basophils Percent Auto 0.2 % (0-2); Eosinophils Absolute Auto 0.5 X10*3/uL (0.0-0.4); Eosinophils Percent Auto 4.7 % (0-4); Hematocrit 33.4 % (37.0-47.0); Hemoglobin 11.3 g/dl (12.0-16.0); Imm Gran Abs Auto 0.06 X10*3/uL (0.00-0.03); Imm Gran Pct Auto 0.6 % (0.0-0.4); Lymphocytes Absolute Auto 1.6 X10*3/uL (1.2-4.9); Lymphocytes Percent Auto 15.8 % (20-40); Mean Corpuscular HGB Conc 33.8 g/dl (31.0-35.0); Mean Corpuscular Hemoglobin 31.9 pg (27.0-33.0); Mean Corpuscular Volume 94.4 fL (80.0-98.0); Mean Platelet Volume 10.3 fL (9.4-12.3); Monocytes Absolute Auto 1.3 X10*3/uL (0.1-1.2); Monocytes Percent Auto 13.5 % (2-11); Neutrophils Absolute Auto 6.5 x10*3/uL (2.0-8.3); Neutrophils Percent Auto 65.2 % (45-73); Platelet Count 272 X10*3/uL (160-400); Red Blood Count 3.54 X10*6/uL (4.20-5.50); Red Cell Distribution Width 12.7 % (11.0-16.0)
[2023-08-24 06:51] LABS: Alanine Aminotransferase 48 U/L (0-31); Albumin Level 3.2 g/dL (3.5-5.0); Alkaline Phosphatase 93 U/L (39-117); Anion Gap 12 (12-20); Aspartate Amino Transferase 32 U/L (5-31); Bilirubin Total 0.6 mg/dL (0.0-1.0); Blood Urea Nitrogen 18 mg/dL (9-16); Calcium 8.7 mg/dL (8.4-10.2); Carbon Dioxide 23 mmol/L (22-29); Chloride 107 mmol/L (96-108); Creatinine Clr Calc Pharmacy 41.2; Estimated Glomerular Filt Rate 59; Glucose Random 116 mg/dL (60-115); Potassium 3.5 mmol/L (3.3-5.1); Sodium 138 mmol/L (135-145); Total Protein 5.8 g/dL (6.5-8.0)
[2023-08-24 07:36] VITALS: BP 133/64; PULSE 99; RESP 12; TEMP 36.8; O2SAT 94
[2023-08-24] MEDS: 0.9 % Sodium Chloride Flush 3 ML SYRINGE IVFLUSH ×2 (09:32→15:56)
[2023-08-24] MEDS: Labetalol HCL 100 MG TABLET PO ×2 (09:32→17:10)
[2023-08-24] MEDS: Cholecalciferol (Vitamin D3) 25 MCG TABLET PO (09:32)
[2023-08-24] MEDS: lisinopriL 10 MG TABLET PO ×2 (09:33→15:22)
--- NOTE | 2023-08-24 13:04 | P.PNIM_ITS ---
Subjective Subjective Date of Service: 08/24/23 Interval History: Mild confusion this a.m. but easily reoriented. Family present Review of Systems Denies chest pain Denies shortness of breath Denies nausea vomiting diarrhea Denies fever chills Physical Exam 2 Vital Signs: Vital Signs: Last Vital Signs Temp 98.3 F 08/24/23 07:36 Pulse 99 08/24/23 07:36 Resp 12 08/24/23 07:36 BP 133/64 08/24/23 07:36 Pulse Ox 94 08/24/23 07:36 O2 Del Method Room Air 08/24/23 07:36 BMI result Body Mass Index 21.3 Const: Other: Awake alert no acute distress Resp: Other: Clear to auscultation bilaterally no rales rhonchi or wheezes Cardio: Other: No S4; positive S1-S2; no S3 murmurs rubs or gallops GI: Other: Soft nontender nondistended normoactive bowel sounds : Other: Pham in place; purplish black liquid in bag Neuro: Other: Cranial nerves 2-12 grossly intact as tested. Motor is 5/5 all extremities. Sensation is intact. Cognition appropriate Extrem: Other: No edema bilaterally Objective Data Active Medications Acetaminophen (Acetaminophen 325 Mg Tablet) 650 mg PO Q6H PRN PRN Reason: Pain, Mild (Pain Scale 1-3) Last Admin: 08/23/23 07:56 Dose: 650 mg Documented By: WHITNEY Lactated Ringer's (Lr) 1,000 mls @ 100 mls/hr IVCONT .Q10H [facility] Last Infusion: 08/24/23 12:31 Dose: Infused Documented By: JULITA Ceftriaxone Sodium 1 gm/ (Sodium Chloride) 50 mls @ 100 mls/hr IV Q24H [facility] Labetalol HCl (Labetalol Hcl 100 Mg Tablet) 100 mg PO BID@1000,1700 CARLIN; Protocol Last Admin: 08/24/23 09:32 Dose: 100 mg Documented By: JULITA Lisinopril (Lisinopril 10 Mg Tablet) 10 mg PO BID@0800,1300 CARLIN; Protocol Last Admin: 08/24/23 09:33 Dose: 10 mg Documented By: JULITA Magnesium Hydroxide (Milk Of Magnesia 30 Ml Oral.Susp) 30 ml PO DAILY PRN PRN Reason: Constipation Ondansetron HCl (Ondansetron Hcl 4 Mg/2 Ml Vial) 4 mg IVPUSH Q8H PRN PRN Reason: Nausea and Vomiting Sodium Chloride (0.9 % Sodium Chloride Flush 3 Ml Syringe) 3 ml IVFLUSH QSHIFT [facility] Last Admin: 08/24/23 09:32 Dose: 3 ml Documented By: JULITA Vitamin D (Cholecalciferol (Vitamin D3) 25 Mcg Tablet) 25 mcg PO DAILY [facility] Last Admin: 08/24/23 09:32 Dose: 25 mcg Documented By: JULITA Labs 08/24/23 05:20 08/24/23 05:20 Labs: Laboratory Results - last 24 hr 08/24/23 05:20 MCV 94.4 MCH 31.9 MCHC 33.8 RDW 12.7 Plt Count 272 MPV 10.3 Immature Gran % (Auto) 0.6 H Neut % (Auto) 65.2 Lymph % (Auto) 15.8 L [place] % (Auto) 13.5 H Eos % (Auto) 4.7 H Baso % (Auto) 0.2 Lymph # (Auto) 1.6 [place] # (Auto) 1.3 H Eos # (Auto) 0.5 H Baso # (Auto) 0.0 Abs Immat Gran (auto) 0.06 H Absolute Neuts (auto) 6.5 Absolute Nucleated RBC 0.000 Nucleated RBC % (auto) 0.0 Anion Gap 12 Estim Creat Clear Calc 41.2 Estimated GFR 59 Random Glucose 116 H Calcium 8.7 Total Bilirubin 0.6 AST 32 H ALT 48 H Alkaline Phosphatase 93 Total Protein 5.8 L Albumin 3.2 L Microbiology Microbiology Results: Microbiology 08/22/23 10:56 Blood Culture - Preliminary Blood - Venous No growth after 48 hours. 08/22/23 Unknown Urine Culture - Final Urine Catheterized - Straight Catheter 08/22/23 11:19 Blood Culture - Preliminary Blood - Venous No growth after 24 hours. Assessment and Plan (1) Complicated urinary tract infection: Status: Acute (2) Gross hematuria: Status: Acute Plan 88-year-old female past medical history of GERD, hypertension recently seen in ER diagnosed with possible pancreatic head lesion. Was to follow-up with PCP for MRI or MRCP/ultrasound. Approximately 48 hours prior to admission started to develop some blood in her urine they got worse to the point of clots. She presents to ER with prasad hematuria. Urine with active sediment 1. Hematuria secondary to UTI -continue ceftriaxone 1 g Q24h(3) -await cultures -Pham 2. Pancreatic duct abnormality -MRCP as outpatient Will require ongoing hospitalization to treat hematuria with IV antibiotics Quality Stroke Does the patient have a stroke diagnosis?: No VTE Prior VTE?: No VTE Risk Level:: Medical - moderate - high VTE Device Contraindication: N/A - Device Ordered VTE Drug Contraindication: Treatment Not Indicated
[2023-08-24] MEDS: cefTRIAXone sodium 1 GM in 0.9 % Sodium Chloride 50 ML IV (15:22)
[2023-08-24 16:00] VITALS: BP 131/81; PULSE 94; RESP 20; TEMP 36.7; O2SAT 98
--- NOTE | 2023-08-24 16:08 | PC.NURSE ---
Patient c/o left ey itchyness ,redness and puffines present ,Dr. Shelley notified
[2023-08-24 20:00] VITALS: BP 135/69; PULSE 97; TEMP 36.2; O2SAT 96
[2023-08-25 04:00] VITALS: BP 113/55; PULSE 97; RESP 18; TEMP 36.7; O2SAT 95
[2023-08-25] MEDS: Lactated Ringers 1,000 ML 100 ML IVCONT (06:07)
[2023-08-25 06:11] LABS: MANUAL DIFF FLAG NO
[2023-08-25 06:31] LABS: Basophils Percent Auto 0.4 % (0-2); Eosinophils Absolute Auto 0.5 X10*3/uL (0.0-0.4); Hematocrit 30.7 % (37.0-47.0); Hemoglobin 10.2 g/dl (12.0-16.0); Imm Gran Abs Auto 0.04 X10*3/uL (0.00-0.03); Imm Gran Pct Auto 0.5 % (0.0-0.4); Lymphocytes Absolute Auto 1.4 X10*3/uL (1.2-4.9); Lymphocytes Percent Auto 17.9 % (20-40); Mean Corpuscular HGB Conc 33.2 g/dl (31.0-35.0); Mean Corpuscular Hemoglobin 31.8 pg (27.0-33.0); Mean Corpuscular Volume 95.6 fL (80.0-98.0); Mean Platelet Volume 10.1 fL (9.4-12.3); Monocytes Absolute Auto 0.9 X10*3/uL (0.1-1.2); Monocytes Percent Auto 12.2 % (2-11); Neutrophils Absolute Auto 4.8 x10*3/uL (2.0-8.3); Platelet Count 278 X10*3/uL (160-400); Red Blood Count 3.21 X10*6/uL (4.20-5.50); Red Cell Distribution Width 12.8 % (11.0-16.0); White Blood Count 7.6 X10*3/uL (4.8-10.8)
[2023-08-25 06:37] LABS: Alanine Aminotransferase 36 U/L (0-31); Alkaline Phosphatase 72 U/L (39-117); Anion Gap 11 (12-20); Aspartate Amino Transferase 25 U/L (5-31); Bilirubin Total 0.5 mg/dL (0.0-1.0); Blood Urea Nitrogen 14 mg/dL (9-16); Calcium 8.4 mg/dL (8.4-10.2); Carbon Dioxide 23 mmol/L (22-29); Chloride 109 mmol/L (96-108); Creatinine Clr Calc Pharmacy 45.2; Estimated Glomerular Filt Rate > 60; Glucose Random 100 mg/dL (60-115); Potassium 3.9 mmol/L (3.3-5.1); Sodium 139 mmol/L (135-145); Total Protein 5.5 g/dL (6.5-8.0)
[2023-08-25 07:42] VITALS: BP 138/72; PULSE 92; RESP 16; TEMP 36.3; O2SAT 94
[2023-08-25] MEDS: Labetalol HCL 100 MG TABLET PO (08:34)
[2023-08-25] MEDS: lisinopriL 10 MG TABLET PO (08:34)
[2023-08-25] MEDS: Cholecalciferol (Vitamin D3) 25 MCG TABLET PO (08:34)
[2023-08-25] MEDS: 0.9 % Sodium Chloride Flush 3 ML SYRINGE IVFLUSH (08:34)
--- NOTE | 2023-08-25 10:49 | MHC.CM.PN ---
PT WILL DC HOME TODAY WITH [facility] DAUGHTER TO TRANSPORT
--- NOTE | 2023-08-25 11:39 | P.DS_ITS ---
DS: Providers Provider Date of Service: 08/25/23 Date of admission: 08/22/23 16:05 Date of discharge: 08/25/23 Primary care physician: Rik Miller MD Consults: 08/22/23 16:08 Consult to Urology Routine Consulting Provider: Charles Rodriguez Reason for consultation: Hematuria Has provider been notified: No DS: Diagnosis Discharge Diagnosis (1) Complicated urinary tract infection: Status: Acute (2) Gross hematuria: Status: Acute DS: Summary Hospital Course Hospital Course: 88-year-old female past medical history of GERD, hypertension recently seen in ER diagnosed with possible pancreatic head lesion. Was to follow-up with PCP for MRI or MRCP/ultrasound. Today she developed blood in the toilet with some clots in the absence of dysuria symptoms. She denies fever chills. She states over the last 48 hours her urine has gone from light red to dark reddish purple. In the emergency room noted to have gross hematuria along with a white count of 13.5. Culture sent; admission requested Hospital Course Admitted to general medical floor and started on ceftriaxone 1 g daily. Over the course of the next 48 hours hours her urine cleared and the Pham was removed. She continued have red tinged urine however no clots and no difficulty voiding. On the day of discharge she is voiding without issue and is medically acceptable for discharge to home. She will need outpatient follow-up for MRI/MRCP to evaluate pancreatic head lesion. This can be done with her PCP. Time Attestation Discharge coordination time: Greater than 30 minutes Quality: Safe Use of Opioids Does Pt have an Active Cancer Diagnosis on the Problem List?: No Quality: Stroke Does the patient have a stroke diagnosis?: No Physical Exam Vital Signs: Vital Signs: Last Vital Signs Temp 97.4 F 08/25/23 07:42 Pulse 92 08/25/23 07:42 Resp 16 08/25/23 07:42 BP 138/72 08/25/23 07:42 Pulse Ox 94 08/25/23 07:42 O2 Del Method Room Air 08/25/23 07:42 O2 Flow Rate 3 08/24/23 20:00 BMI result Body Mass Index 21.3 Const: Other: Awake alert no acute distress Resp: Other: Clear to auscultation bilaterally no rales rhonchi or wheezes Cardio: Other: No S4; positive S1-S2; no S3 murmurs rubs or gallops GI: Other: Soft nontender nondistended normoactive bowel sounds : Other: Pham in place; purplish black liquid in bag Neuro: Other: Cranial nerves 2-12 grossly intact as tested. Motor is 5/5 all extremities. Sensation is intact. Cognition appropriate Extrem: Other: No edema bilaterally DS: Data Data Completed and Pending Labs on day of discharge: Laboratory Results - last 24 hr 08/25/23 05:27 WBC 7.6 RBC 3.21 L Hgb 10.2 L Hct 30.7 L MCV 95.6 MCH 31.8 MCHC 33.2 RDW 12.8 Plt Count 278 MPV 10.1 Immature Gran % (Auto) 0.5 H Neut % (Auto) 63.0 Lymph % (Auto) 17.9 L [place] % (Auto) 12.2 H Eos % (Auto) 6.0 H Baso % (Auto) 0.4 Lymph # (Auto) 1.4 [place] # (Auto) 0.9 Eos # (Auto) 0.5 H Baso # (Auto) 0.0 Abs Immat Gran (auto) 0.04 H Absolute Neuts (auto) 4.8 Absolute Nucleated RBC 0.000 Nucleated RBC % (auto) 0.0 Sodium 139 Potassium 3.9 Chloride 109 H Carbon Dioxide 23 Anion Gap 11 L BUN 14 Creatinine 0.82 Estim Creat Clear Calc 45.2 Estimated GFR > 60 Random Glucose 100 Calcium 8.4 Total Bilirubin 0.5 AST 25 ALT 36 H Alkaline Phosphatase 72 Total Protein 5.5 L Albumin 3.0 L Preliminary micro results at discharge 08/22/23 11:19 Blood Culture - Preliminary Blood - Venous No growth after 48 hours. 08/22/23 10:56 Blood Culture - Preliminary Blood - Venous No growth after 48 hours. Discharge Plan Discharge Anticipated Discharge Date/Time: 08/25/23 11:36 Patient Disposition: Home Health Service Discharge Diagnosis: Hemorrhagic cystitis Referrals: [facility] [Outside] - 1 Week Rik Miller MD [Primary Care Provider] - Discharge Medications: New cefuroxime axetil 250 mg tablet 250 mg PO BID 7 Days Qty: 14 0RF Continued cholecalciferol (vitamin D3) 25 mcg (1,000 unit) Tablet 25 mcg PO DAILY lisinopril 10 mg tablet 10 mg PO BID@0800,1300 labetalol 100 mg tablet 100 mg PO BID@1000,1700 Discharge Orders: Discharge Order (Routine); Ordered 08/25/23 Ordered By: Surya Shelley Diet: Advance to usual diet Activity on Discharge: As tolerated Stand Alone Forms: Patient Portal Discharge page Care Plan Goals: Resume all medications as taken before hospitalization Health Concerns: Ceftin 250 twice daily has been added to your regimen to complete your treatment for the urinary tract infection Plan of Treatment: You need to call Dr. Miller's office to set up an MRI to further evaluate your pancreatic abnormality Assessment: See discharge summary
--- NOTE | 2023-08-25 11:44 | P.F2F_ITS ---
Service Date Service Date: 08/25/23 Encounter Date of encounter: 08/25/23 Encounter: Acute hospitalization Reasons for Services Signs and symptoms assessed: Admitted with hemorrhagic cystitis. Will need follow-up of urinary status and medication compliance Reason for penitentiary: medication management and other (Monitoring urine output and presence or absence of hematuria) Homebound: Leaving the home is medically contraindicated at this time without the asist of a device and/or another person due th the listed conditions above and below. Reason homebound: unsteady gait / fall risk and unable to drive Certification: Based on the above findings, I certify that this patient is confined to the home and needs intermittent penitentiary care, physical therapy and/or speech therapy, or continues to need occupational therapy. The patient is under my care, and I have initiated the establishment of the plan of care. The patient will be followed by a physician who will periodically review the plan of care. Time Spent With Patient Time: Total time managing care of this patient today ____ minutes.
== END 2023-08-25 13:44 | disposition home health service (06) | DRG 690 ==
LOC: HO.ED 14:32 → HO.EDOVER 16:13 → HO.S3 17:04
PROVIDERS: Admitting Provider Hospitalist; Emergency Provider Emergency Medicine; PCP Internal Medicine; Visit Provider Hospitalist
DX: N30.01 Acute cystitis with hematuria (principal); K86.89 Other specified diseases of pancreas; Z20.822 Contact with and (suspected) exposure to COVID-19; Z23 Encounter for immunization; Z87.891 Personal history of nicotine dependence; Z79.899 Other long term (current) drug therapy
CPT/HCPCS: 36415; 74177; 80048; 80053; 80076; 81001; 82272; 83605; 83690; 83735; 85025; 85610; 86850; 86900; 86901; 87040; 87086; 87635; 90686; 93005; 99285; C1758; J0696; J3475; J7120; Q9967

== ENCOUNTER → 2023-08-22 10:19 | Outpatient (BNV) | payer MEDICARE, SELFPAY | PROVIDERS: Emergency Provider Emergency Medicine; PCP Internal Medicine; Visit Provider Internal Medicine | DX: R00.0 Tachycardia, unspecified (principal) | CPT/HCPCS: 93010 ==

== ENCOUNTER → 2023-08-22 16:05 | Outpatient (BNV) | payer MEDICARE, SELFPAY | PROVIDERS: Admitting Provider Hospitalist; Emergency Provider Emergency Medicine; PCP Internal Medicine; Visit Provider Urology | DX: N39.0 Urinary tract infection, site not specified (principal); R31.0 Gross hematuria; N30.01 Acute cystitis with hematuria | CPT/HCPCS: 99222; 99232 ==

== ENCOUNTER → 2023-08-22 16:05 | Outpatient (BNV) | payer MEDICARE, SELFPAY | PROVIDERS: Admitting Provider Hospitalist; Emergency Provider Emergency Medicine; PCP Internal Medicine; Visit Provider Hospitalist | DX: N39.0 Urinary tract infection, site not specified (principal); R31.0 Gross hematuria | CPT/HCPCS: 99223; 99233; 99239; G0180 ==

== ENCOUNTER 2023-10-12 12:10 | Emergency (ER) | payer MEDICARE, SELFPAY ==
--- NOTE | 2023-10-12 12:33 | ED_ITS ---
HPI - Wound/Laceration General Chief Complaint: Wound/Laceration Stated Complaint: LAC ON R WRIST Time Seen by Provider: 10/12/23 12:13 Source: patient and EMS Mode of arrival: EMS Limitations: no limitations History of Present Illness HPI narrative: 88-year-old female with a past medical history of hypertension presents to the emergency department, via EMS, for management of a laceration to her wrist wrist. She reports that she was taking her garbage when the top of the garbage can, which was metal, hit her in the arm causing immediate bleeding and pain. She denies any paresthesias or difficulty with range of motion of the arm. She denies any anticoagulation use reports the bleeding is controlled at this time. She reports that she is unsure of when her last tetanus shot was pertinent positives and negatives discussed in HPI Related Data Home Medications Medication Instructions Recorded Confirmed labetalol 100 mg tablet 100 mg PO BID@1000,1700 01/20/21 08/22/23 lisinopril 10 mg tablet 10 mg PO BID@0800,1300 01/20/21 08/22/23 cholecalciferol (vitamin D3) 25 25 mcg PO DAILY 08/22/23 08/22/23 mcg (1,000 unit) tablet Previous Rx's Medication Instructions Recorded cefuroxime axetil 250 mg tablet 250 mg PO BID 7 days #14 tabs 08/25/23 Allergies Allergy/AdvReac Type Severity Reaction Status Date / Time Seasonal Allergies Allergy Itchy Eyes Verified 08/16/23 14:26 Review of Systems Review of Systems: Yes all other systems are reviewed and are negative PMFSH Past Medical History Medical History Fracture of sternum, closed (~01/2015) Wedge compression fracture of T12 vertebra Common bile duct dilation Pulmonary nodules Multinodular goiter Tracheal deviation Osteopenia Hyperlipidemia GERD (gastroesophageal reflux disease) HTN (hypertension) Surgical History Hx of appendectomy History of colonoscopy History of hernia repair History of hysterectomy Family History Family History Brother Rectal cancer Father Myocardial infarction Mother Breast cancer Social History Social History Household Members: None Housing: Apartment Do you presently have visiting nurse or other home services: No Unable to assess alcohol history related to: Unknown Alcohol intake: never Patient Tobacco Use Status: Former Tobacco user Tobacco use type: Cigarette Advance Directives: No Advance Directives Information Provided: No service: No Physical Exam Vital Signs: Vital Signs: Last Vital Signs Temp 97.7 F 10/12/23 13:31 Pulse 77 10/12/23 13:31 Resp 16 10/12/23 13:31 BP 157/79 H 10/12/23 13:31 Pulse Ox 98 10/12/23 13:31 O2 Del Method Room Air 10/12/23 13:31 BMI result Body Mass Index 22.4 Nursing notes and vital signs reviewed. GENERAL APPEARANCE: A&0 x 4, generally well appearing, no acute distress HENMT: Normal to inspection, atraumatic, face symmetrical. Normal external ear s, nose, and oropharynx clear. EYE: PERRLA, EOM intact, structures appear normal NECK: Supple without stiffness or restricted ROM. HEART: Normal rate and regular rhythm, normal S1/S2, no M/R/G LUNGS: LS CTA, moving air well. Able to speak in complete sentences. No crackles, wheezes, or rhonchi auscultated BACK: No CVAT, no obvious deformity EXTREMITIES: Moving all extremities without difficulty. Normal capillary refill. 2 cm skin tear on right dorsal wrist. NEUROLOGICAL: Alert and oriented, moving all 4 extremities with equal strength. CN not formally tested but appearing grossly intact. Observed to ambulate with normal gait. Cognition normal SKIN: Warm and dry without any lesions, rash, or visible sores Medications Administered Discontinued Medications Generic Name Dose Route Start Last Admin Trade Name Freq PRN Reason Stop Dose Admin Diphtheria/Tetanus/Acell Pertussis 0.5 ml 10/12/23 12:29 10/12/23 13:21 Diphth,Pertus(Acell),Tet Adult 0.5 Ml Syringe IM 10/12/23 12:30 0.5 ml .ONCE ONE Administration Medical Decision Making Medical Decision Making MDM Narrative: Old records reviewed for previous imaging, lab studies, ECGs, and notes. Patient was assessed the emergency department with no acute distress or toxicity noted. Skin tear cleansed and closed with Steri-Strips. Patient educated to keep wound clean and dry to prevent infection. Tetanus shot provided as patient was unsure of her last vaccination. X-ray of the wrist was considered, however; it is deemed necessary at this time as patient had full range of motion without paresthesias and no obvious deformities was noted. Patient is safe for discharge at this time with plan for [id number] Tylenol and/or NSAID such as ibuprofen or naproxen for fever/discomfort with dosing as per packaging. HPI, PE, diagnostics, and plan discussed with patient and family with no unanswered questions at this time. Strict return precautions given to return to the emergency department with new, worsening, or concerning emergent symptoms. Recommended to follow-up with there primary care provider in 24-48 hours for further treatment and management. Differential Diagnosis Differential Diagnoses: The differential diagnosis associated with the presentation includes Not limited to fracture, dislocation, sprain, strain, contusion, laceration, skin tear Procedures Laceration Laceration 1: Site: upper extremity Side (If applicable): right Size (cm): 2 Description: flap Depth: simple, single layer Pre-repair: wound explored Skin layer closed with: other (steristrips) Discharge Plan Discharge Clinical Impression: Skin tear of right upper arm without complication Patient Disposition: Home, Self-Care Instructions: Laceration (ED) Additional Instructions: Your seen in the emergency department for concerns of a laceration on your right wrist. Your laceration was cleansed and closed with Steri-Strips. Please let the Steri-Strips fall off on their own to avoid re-injuring or opening the laceration. You were given a tetanus shot today to keep you up-to-date. You are safe for discharge at this time with plan for management of fever or discomfort with [id number] Tylenol and/or NSAID such as ibuprofen or naproxen with dosing as per packaging. Please return to the emergency de partment with new, worsening, or concerning emergent symptoms. Recommended to follow-up with your primary care provider in 24-48 hours for further treatment and management. Thank you for choosing [facility]. Prescriptions: No Action cholecalciferol (vitamin D3) 25 mcg (1,000 unit) Tablet 25 mcg PO DAILY cefuroxime axetil 250 mg tablet 250 mg PO BID 7 Days Qty: 14 0RF lisinopril 10 mg tablet 10 mg PO BID@0800,1300 labetalol 100 mg tablet 100 mg PO BID@1000,1700 [place] [facility] [place] [facility] [place] Group[place] [facility] [place] [facility] [place] Group] Interventions: ED Discharge Assessment Last Done: 10/12/23 13:31 Print Language: Romanian
[2023-10-12] MEDS: Diphth,Pertus(ACell),Tet Adult 0.5 ML SYRINGE IM (13:21)
[2023-10-12 13:23] VITALS: BP 157/79; PULSE 77; RESP 16; TEMP 36.5; O2SAT 98; BMI 22.4
[2023-10-12 13:31] VITALS: BP 157/79; PULSE 77; RESP 16; TEMP 36.5; O2SAT 98
== END 2023-10-12 13:42 | disposition home or self-care (01) ==
LOC: HO.ED 13:32
PROVIDERS: Emergency Provider Student in an Organized Health Care Education/Training Program; PCP Internal Medicine
DX: S61.511A Laceration without foreign body of right wrist, initial encounter (principal); I10 Essential (primary) hypertension; W26.8XXA Contact with other sharp object(s), not elsewhere classified, initial encounter; Y93.E9 Activity, other interior property and clothing maintenance; Y92.9 Unspecified place or not applicable; Y99.9 Unspecified external cause status; Z23 Encounter for immunization
CPT/HCPCS: 12001; 90471; 90715; 99283; 99284

== ENCOUNTER 2024-04-23 12:26 | Outpatient (REF) | payer MEDICARE, SELFPAY ==
[2024-04-23 13:08] LABS: MANUAL DIFF FLAG NO
[2024-04-23 13:14] LABS: Basophils Percent Auto 0.5 % (0-2); Eosinophils Absolute Auto 0.5 X10*3/uL (0.0-0.4); Eosinophils Percent Auto 7.9 % (0-4); Hematocrit 38.8 % (37.0-47.0); Hemoglobin 12.8 g/dl (12.0-16.0); Imm Gran Abs Auto 0.01 X10*3/uL (0.00-0.03); Imm Gran Pct Auto 0.2 % (0.0-0.4); Lymphocytes Absolute Auto 1.4 X10*3/uL (1.2-4.9); Mean Corpuscular Hemoglobin 32.5 pg (27.0-33.0); Mean Corpuscular Volume 98.5 fL (80.0-98.0); Mean Platelet Volume 10.2 fL (9.4-12.3); Monocytes Absolute Auto 0.6 X10*3/uL (0.1-1.2); Monocytes Percent Auto 9.5 % (2-11); Neutrophils Percent Auto 60.9 % (45-73); Platelet Count 227 X10*3/uL (160-400); Red Blood Count 3.94 X10*6/uL (4.20-5.50); Red Cell Distribution Width 12.9 % (11.0-16.0); White Blood Count 6.6 X10*3/uL (4.8-10.8)
[2024-04-23 13:40] LABS: Alanine Aminotransferase 10 U/L (0-31); Albumin Level 4.2 g/dL (3.5-5.0); Alkaline Phosphatase 47 U/L (39-117); Anion Gap 11 (12-20); Aspartate Amino Transferase 16 U/L (5-31); Bilirubin Total 0.4 mg/dL (0.0-1.0); Blood Urea Nitrogen 12 mg/dL (9-16); Calcium 9.6 mg/dL (8.4-10.2); Carbon Dioxide 29 mmol/L (22-29); Chloride 103 mmol/L (96-108); Cholesterol 208 mg/dL (<200); Estimated Glomerular Filt Rate 51; Glucose Random 99 mg/dL (60-115); Potassium 4.1 mmol/L (3.3-5.1); Sodium 139 mmol/L (135-145); Total Protein 7.1 g/dL (6.5-8.0)
[2024-04-23 13:55] LABS: Free T4 (Free Thyroxine) 1.04 ng/dL (0.71-1.85); Thyroid Stimulating Hormone 1.15 uIU/mL (0.32-4.0)
== END 2024-04-23 12:27 | disposition home or self-care (01) ==
LOC: HO.10HDL 12:26
PROVIDERS: Visit Provider Internal Medicine
DX: I10 Essential (primary) hypertension (principal); K21.9 Gastro-esophageal reflux disease without esophagitis; R25.2 Cramp and spasm
CPT/HCPCS: 36415; 80053; 82465; 84439; 84443; 85025

== ENCOUNTER 2025-01-14 14:08 | Outpatient (REF) | payer MEDICARE, SELFPAY ==
[2025-01-14 14:56] LABS: MANUAL DIFF FLAG NO
[2025-01-14 15:17] LABS: Hematocrit 39.3 % (37.0-47.0); Hemoglobin 13.2 g/dl (12.0-16.0); Imm Gran Abs Auto 0.01 X10*3/uL (0.00-0.03); Imm Gran Pct Auto 0.2 % (0.0-0.4); Lymphocytes Absolute Auto 1.6 X10*3/uL (1.2-4.9); Mean Corpuscular HGB Conc 33.6 g/dl (31.0-35.0); Mean Corpuscular Hemoglobin 32.5 pg (27.0-33.0); Mean Corpuscular Volume 96.8 fL (80.0-98.0); NRBC Abs Auto 0.000 X10*3/uL (0.0-0.012); NRBC Pct Auto 0.0 /100WBC (0.0-0.2); Platelet Count 271 X10*3/uL (160-400); Red Blood Count 4.06 X10*6/uL (4.20-5.50); White Blood Count 6.6 X10*3/uL (4.8-10.8)
[2025-01-14 15:59] LABS: Hemoglobin A1C 129.5807 umol/L; Total Hemoglobin (HGBA1C) 3453.7982 umol/L
[2025-01-14 16:20] LABS: Alanine Aminotransferase 14 U/L (0-31); Albumin Level 4.4 g/dL (3.5-5.0); Alkaline Phosphatase 52 U/L (39-117); Anion Gap 12 (12-20); Aspartate Amino Transferase 13 U/L (5-31); Blood Urea Nitrogen 17 mg/dL (9-16); Calcium 9.2 mg/dL (8.4-10.2); Carbon Dioxide 25 mmol/L (22-29); Chloride 103 mmol/L (96-108); Estimated Glomerular Filt Rate 52; Potassium 4.2 mmol/L (3.3-5.1); Sodium 136 mmol/L (135-145); Total Protein 7.1 g/dL (6.5-8.0)
== END 2025-01-14 14:09 | disposition home or self-care (01) ==
LOC: HO.LAB 14:08
PROVIDERS: PCP Internal Medicine; Visit Provider Internal Medicine
DX: Z00.00 Encounter for general adult medical examination without abnormal findings (principal); I10 Essential (primary) hypertension; E78.5 Hyperlipidemia, unspecified; E04.2 Nontoxic multinodular goiter; D64.9 Anemia, unspecified; E04.9 Nontoxic goiter, unspecified; M17.11 Unilateral primary osteoarthritis, right knee; M16.11 Unilateral primary osteoarthritis, right hip; K21.9 Gastro-esophageal reflux disease without esophagitis; Z13.228 Encounter for screening for other metabolic disorders
CPT/HCPCS: 36415; 80053; 83036; 83721; 85025; 96127; 99397

== ENCOUNTER → 2025-01-14 14:08 | Outpatient (AMB) | payer MEDICARE, SELFPAY ==
--- NOTE | 2025-01-14 14:07 | A.OFFPC_ITS ---
Vital Signs 01/14/25 14:14 Height 5 ft 6 in Weight 128 lb BMI 20.7 BP 142/96 H Blood Pressure Location Lt brachial Position Sitting Respiration 16 Pulse 97 Pulse Source Pulse Oximeter Temp 97.6 F Pulse Oximetry (%) 99 Oxygen Delivery Method Room Air Intake Visit Reasons: Annual Hand [employer] Required: No Accompanied by: Daughter Allergies Seasonal Allergies Allergy (Verified 01/14/25 14:13) Itchy Eyes HPI HPI Comments History of Present Illness Details 89 year old female with a past medical h istory of hypertension, anemia, goiter, ddd spine, right hip OA, GERD presenting for physical exam CV: on labetolol, lisinopril. BP 142/96. She has been out of her bp medications. Denies chest pain, exertional dyspnea GERD: on lansoprazole MSK: knees, lumbar spine, right shoulder. Takes tylenol infrequently. history of osteopenia, t12 compression fracutre ROS CONSTITUTIONAL: Denies weight loss, fever and chills. HEENT: Denies changes in vision and hearing. RESPIRATORY: Denies SOB and cough. CV: Denies palpitations and CP GI: Denies abdominal pain, nausea, vomiting and diarrhea. : Denies dysuria and urinary frequency. MSK: Denies new myalgia and joint pain. SKIN: Denies rash and pruritus. NEUROLOGICAL: Denies headache PSYCHIATRIC: Denies recent changes in mood. PHYSICAL EXAM: GENERAL: Alert and oriented x 3. NAD EYES: EOMI. Anicteric. HENT: Moist mucous membranes. No scleral icterus. No cervical lymphadenopathy. LUNGS: Clear to auscultation bilaterally. CARDIOVASCULAR: Regular rate and rhythm. No murmur. No JVD. ABDOMEN: Soft, non-tender +bs EXTREMITIES: No edema. Non-tender. SKIN: No rashes or lesions. Warm. NEUROLOGIC: No focal neurological deficits. CN II-XII grossly intact PSYCHIATRIC: Cooperative. Appropriate mood and affect [facility] Medical History Pancreatic ductal abnormality Fracture of sternum, closed (~01/2015) Wedge compression fracture of T12 vertebra Common bile duct dilation Pulmonary nodules Multinodular goiter Tracheal deviation Osteopenia Hyperlipidemia GERD (gastroesophageal reflux disease) HTN (hypertension) Surgical History Hx of appendectomy History of colonoscopy History of hernia repair History of hysterectomy Family History Brother Rectal cancer Father Myocardial infarction Mother Breast cancer Social History Household Members: None Housing: Apartment Do you presently have visiting nurse or other home services: No Unable to assess alcohol history related to: Unknown Alcohol intake: never Patient Tobacco Use Status: Former Tobacco user Tobacco use type: Cigarette service: No Questionnaire PHQ-9 Over the last 2 weeks, how often have you been bothered by any of the following problems? 1. Little interest or pleasure in doing things: not at all 2. Feeling down, depressed, or hopeless: not at all 3. Trouble falling or staying asleep, or sleeping too much: not at all 4. Feeling tired or having little energy: not at all 5. Poor appetite or overeating: not at all 6. Feeling bad about yourself - or that you are a failure or have let yourself or your family down: not at all 7. Trouble concentrating on things, such as reading the newspaper or watching television: not at all 8. Moving or speaking so slowly that other people could have noticed. Or the opposite - being so fidgety or restless that you have been moving around a lot more than usual: not at all 9. Thoughts that you would be better off or of hurting yourself in some way: not at all Total score: 0 Depression Screening Interpretation: Negative Depression Screening Done: Yes 09644 - PHQ-9 Billing: Yes Source: Developed by Drs. Tony Mayfield, Beth Ghotra, [employer] and colleagues, with an educational john from [employer]. Thrive Questionnaire Date Thrive assessed: 01/14/25 I am a: Patient What is your living situation today?: I have a steady place to live Within the past 12 months, did the food you bought not last and you didn't have the money to get more?: Never true Within the past 12 months, did you worry whether your food would run out before you got money to buy more?: Never true Do you have trouble paying for medicines?: No Do you have trouble getting transportation to medical appointments?: No Do you have trouble paying your heating and electricity bill?: No Do you have trouble taking care of your child, family member or friend?: No Do you have trouble with day-to-day activities such as bathing, preparing meals, shopping, managing finances, etc.?: No Are you currently unemployed and looking for a job?: No Are you interested in more education?: No THRIVE Score: 0 SASCHA-7 AMB Questionnaire SASCHA-7 Date SASCHA - 7 assessed: 01/14/25 Feeling nervous, anxious, or on edge: 0 = Not at all Not being able to stop or control worryin = Not at all Worrying too much about different things: 0 = Not at all Trouble relaxin = Not at all Being so restless that it is hard to sit still: 0 = Not at all Becoming easily annoyed or irritable: 0 = Not at all Feeling afraid as if something awful might happen: 0 = Not at all Total SASCHA-7 score (0-4 normal; 5-9 mild; 10-14 moderate; 15-21 severe): 0 Source: Developed by Drs. Tony Mayfield, Beth Ghotra, [employer] and colleagues, with an educational john from [employer]. Physical exam (Primary Care) Vital Signs: Last Vital Signs Temp 97.6 F 01/14/25 14:14 Pulse 97 01/14/25 14:14 Resp 16 01/14/25 14:14 BP 142/96 H 01/14/25 14:14 Pulse Ox 99 01/14/25 14:14 Oxygen Delivery Method Room Air 01/14/25 14:14 BMI result Body Mass Index 20.7 Tobacco/Smoking Status: Tobacco use Status Patient Tobacco Use Status Former Tobacco user 01/14/25 14:18 Tobacco use type Cigarette 01/14/25 14:18 PHQ-9: PHQ-9 Score PHQ-9: Total score 0 01/14/25 14:39 Depression Screening Interpretation: Negative Thrive Assessment: Date of Thrive Assessment Date Thrive assessed 01/14/25 01/14/25 14:39 Coding Level of Care Code Est Pt Prev Care >65y(55783) Diagnoses Physical exam Z00.00 Primary hypertension I10 Hypertension type: primary hypertension Hyperlipidemia, unspecified hyperlipidemia type E78.5 Hyperlipidemia type: unspecified Additional Codes PHQ-9 - 29550 - PHQ-9 Billing: Yes ([id number]) Assessment & Plan Assessment & Plan (1) Physical exam: Code(s): Z00.00 - Encounter for general adult medical examination without abnormal findings Category: Medical (2) HTN (hypertension): Code(s): I10 - Essential (primary) hypertension Category: Medical Qualifiers: Hypertension type: primary hypertension Qualified Code(s): I10 - Essential (primary) hypertension (3) Hyperlipidemia: Code(s): E78.5 - Hyperlipidemia, unspecified Category: Medical Qualifiers: Hyperlipidemia type: unspecified Qualified Code(s): E78.5 - Hyperlipidemia, unspecified Plan 89 yo to establish care & CPE Past medical, surgical, social reviewed BP higher in setting of not having her medications Refilled Labs ordered Lidocaine patches for pain, daily extra strength tylenol Orders: Orders Comprehensive Met. Panel 01/14/25 I10 - Essential (primary) hypertension LDL Cholesterol Direct 01/14/25 E04.2 - Nontoxic multinodular goiter, E78.5 - Hyperlipidemia, unspecified, I10 - Essential (primary) hypertension, Z13.228 - Encounter for screening for other metabolic disorders Hemoglobin A1c 01/14/25 E04.2 - Nontoxic multinodular goiter, E78.5 - Hyperlipidemia, unspecified, I10 - Essential (primary) hypertension, Z13.228 - Encounter for screening for other metabolic disorders Complete Blood Count Auto Diff 01/14/25 E04.2 - Nontoxic multinodular goiter, E78.5 - Hyperlipidemia, unspecified, I10 - Essential (primary) hypertension, Z13.228 - Encounter for screening for other metabolic disorders XR lumbar spine 2-3V 01/14/25 M54.50 - Low back pain, unspecified Medications: New 2 lansoprazole 15 mg PO DAILY 90 caps 3RF lisinopril 10 mg PO BID@0800,1300 180 tabs 3RF lidocaine 5% leave on most painful area for up to 12 hrs 1 patch topical DAILY 30 ea 3RF Refilled labetalol 100 mg PO BID@1000,1700 180 tabs 3RF
[2025-01-14 14:14] VITALS: BP 142/96; PULSE 97; RESP 16; TEMP 36.4; O2SAT 99; BMI 20.7
== END ==
PROVIDERS: PCP Internal Medicine; Visit Provider Internal Medicine
DX: Z00.00 Encounter for general adult medical examination without abnormal findings (principal); I10 Essential (primary) hypertension; E78.5 Hyperlipidemia, unspecified